=== PATIENT | female | born 1955 | race African-American/Black ===

== ENCOUNTER 2016-10-06 19:48 | Inpatient (IN) | payer MEDICARE, MEDICAID ==
[2016-10-06] MEDS ORDERED: ALBUTEROL SULFATE 0.083% NEB 2.5 MG/3 ML AMPUL NEB ONE (19:55)
[2016-10-06] MEDS ORDERED: IPRATROPIUM/ALBUTEROL 0.5-2.5 MG/3 ML AMPUL NEB ONE (19:55)
--- NOTE | 2016-10-06 19:56 | ER Document Report ---
ED Respiratory Problem - General Chief Complaint: Shortness Of Breath Stated Complaint: DIFFICULTY BREATHING Time seen by provider: 19:56 Mode of Arrival: Medic Information source: Patient, Relative TRAVEL OUTSIDE OF THE [place] IN LAST 30 DAYS: No - HPI Patient complains to provider of: Cough, Short of breath Onset: This afternoon Duration: Worse/persistent Quality of pain: No pain Context: Hx asthma, Smoker Short of Breath: Severe Chest pain/discomfort: Tightness Cough: Nonproductive Associated symptoms: Cough, Short of breath, Wheezing Similar symptoms previously: Yes Recently seen / treated by doctor: Yes Notes: Patient is a 61-year-old female presenting to the emergency room via EMS for shortness of breath this started this afternoon worsened throughout the evening , patient was brought by EMS in moderate to severe respiratory distress with hypoxia, requiring BiPAP placement, family member at bedside reports patient recently saw a primary care visit physician approximate one month ago for the first time in years, she was diagnosed with hypertension, diabetes, asthma/COPD , she is a smoker of approximately one half pack per day, patient denies any chest pain - Related Data Allergies/Adverse Reactions: No Known Allergies Allergy (Verified 05/25/13 16:46) Past Medical History - General Information source: Patient - Social History Smoking Status: Current Every Day Smoker Family History: Reviewed & Not Pertinent - Past Medical History Cardiac Medical History: Reports: Hx Hypercholesterolemia, Hx Hypertension Pulmonary Medical History: Denies: Hx Tuberculosis Endocrine Medical History: Reports: Hx Diabetes Mellitus Type 1, Hx Diabetes Mellitus Type 2 Past Surgical History: Reports: Hx Orthopedic Surgery, Hx Tubal Ligation - Immunizations Immunizations up to date: Yes Hx Diphtheria, Pertussis, Tetanus Vaccination: Yes Review of Systems - Review of Systems Constitutional: No symptoms reported EENT: No symptoms reported Cardiovascular: No symptoms reported Respiratory: See HPI Gastrointestinal: No symptoms reported Genitourinary: No symptoms reported Female Genitourinary: No symptoms reported Musculoskeletal: No symptoms reported Skin: No symptoms reported Hematologic/Lymphatic: No symptoms reported Neurological/Psychological: No symptoms reported -: Yes All other systems reviewed and negative Physical Exam - Vital signs Vitals: Resp Pulse Ox 38 H 97 10/06/16 19:50 10/06/16 19:50 Interpretation: Hypertensive, Tachycardic, Hypoxic - General General appearance: Alert In distress: Moderate - HEENT Head: Normocephalic, Atraumatic Eyes: Normal Pupils: PERRL - Respiratory Respiratory status: Respiratory distress, Labored, Tachypnea Chest status: Nontender Breath sounds: Nonproductive cough, Rales, Rhonchi, Wheezing Chest palpation: Normal - Cardiovascular Rhythm: Regular, Tachycardia Heart sounds: Normal auscultation Murmur: No - Abdominal Inspection: Normal Distension: No distension Bowel sounds: Normal Tenderness: Nontender Organomegaly: No organomegaly - Back Back: Normal, Nontender - Extremities General upper extremity: Normal inspection, Nontender, Normal color, Normal ROM , Normal temperature General lower extremity: Normal inspection, Nontender, Normal color, Normal ROM , Normal temperature, Normal weight bearing. No: Mac's sign - Neurological Neuro grossly intact: Yes Cognition: Normal Orientation: AAOx4 Kyra Coma Scale Eye Opening: Spontaneous [place] Coma Scale Verbal: Oriented [place] Coma Scale Motor: Obeys Commands Kyra Coma Scale Total: 15 Speech: Normal Motor strength normal: LUE, RUE, LLE, RLE Sensory: Normal - Psychological Associated symptoms: Normal affect, Normal mood - Skin Skin Temperature: Warm Skin Moisture: Dry Skin Color: Normal Course - Re-evaluation Re-evalutation: 10/06/16 21:40 Patient was discussed with the hospitalist, her request a CTA be performed, he will accept patient for admission to telemetry floor 10/06/16 23:17 CTA shows no evidence of pulmonary emboli, there are bilateral trace pleural effusions, patient was transferred to her telemetry bed, stable for transport at time of transfer of care - Vital Signs Vital signs: Temp Pulse Resp BP Pulse Ox 26 H 163/75 H 97 10/06/16 22:01 10/06/16 21:01 10/06/16 22:01 - Laboratory Result Diagrams: 10/06/16 20:06 10/06/16 20:06 Laboratory results interpreted by me: 10/06/16 10/06/16 10/06/16 20:06 20:06 20:06 WBC 10.7 H VBG pH VBG pCO2 Potassium 3.3 L Est GFR (Non-Af Amer) 52 L Glucose 297 H AST 132 H ALT 85 H Alkaline Phosphatase 134 H Creatine Kinase 136 H NT-Pro-B Natriuret Pep 1740 H Urine Protein Urine Glucose (UA) Urine Blood 10/06/16 10/06/16 20:06 20:35 WBC VBG pH 7.19 L* VBG pCO2 70.0 H* Potassium Est GFR (Non-Af Amer) Glucose AST ALT Alkaline Phosphatase Creatine Kinase NT-Pro-B Natriuret Pep Urine Protein >=500 H Urine Glucose (UA) >=500 H Urine Blood SMALL H - Diagnostic Test Radiology reviewed: Image reviewed, Reports reviewed - EKG Interpretation by Me EKG shows normal: Sinus rhythm Rate: Normal Rhythm: NSR Critical Care Note - Critical Care Note Total time excluding time spent on procedures (mins): 45 Comments: Patient arrived in moderate to severe respiratory distress requiring immediate BiPAP placement and admission for hypercapnic respiratory failure Discharge - Discharge Clinical Impression: COPD exacerbation Hypercapnic respiratory failure Qualifiers: Chronicity: acute Qualified Code(s): J96.02 - Acute respiratory failure with hypercapnia Condition: Serious Disposition: ADMITTED INPATIENT Admitting Provider: Hospitalist Unit Admitted: Telemetry
[2016-10-06 20:37] LABS: ABSOLUTE BASOPHILS # (AUTO) 0.1 10^3/uL (0.0-0.2); ABSOLUTE EOSINOPHILS # (AUTO) 0.2 10^3/uL (0.0-0.6); ABSOLUTE LYMPHOCYTES (AUTO) 3.8 10^3/uL (0.5-4.7); ABSOLUTE MONOCYTES (AUTO) 0.6 10^3/uL (0.1-1.4); BASOPHILS % (AUTO) 0.6 % (0-2); EOSINOPHILS % (AUTO) 2.1 % (0-6); HEMOGLOBIN 14.5 g/dL (12.0-15.5); HGB HCT DIFFERENCE 0.5; LYMPHOCYTES % (AUTO) 35.7 % (13-45); MEAN CORPUSCULAR HEMOGLOBIN 31.4 pg (27.0-33.4); MEAN CORPUSCULAR HGB CONC 33.7 g/dL (32.0-36.0); MEAN CORPUSCULAR VOLUME 93 fl (80-97); MONOCYTES % (AUTO) 5.8 % (3-13); RED BLOOD COUNT 4.61 10^6/uL (3.72-5.28); RED CELL DISTRIBUTION WIDTH 13.5 % (11.5-14.0); SEGMENTED NEUTROPHILS % (AUTO) 55.8 % (42-78); WHITE BLOOD COUNT 10.7 10^3/uL (4.0-10.5)
[2016-10-06 20:38] LABS: VENOUS BLOOD BASE EXCESS -4.2 mmol/L; VENOUS BLOOD HCO3 25.8 mmol/L (20-32)
[2016-10-06 20:47] LABS: VENOUS BLOOD PH 7.19 (7.30-7.42)
[2016-10-06 20:55] LABS: ALANINE AMINOTRANSFERASE 85 U/L (9-52); ALBUMIN 3.9 g/dL (3.5-5.0); ALKALINE PHOSPHATASE 134 U/L (38-126); ANION GAP 12 (5-19); ASPARTATE AMINO TRANSFERASE 132 U/L (14-36); BLOOD UREA NITROGEN 15 mg/dL (7-20); CALCIUM 9.3 mg/dL (8.4-10.2); CARBON DIOXIDE 24 mmol/L (22-30); CHLORIDE 105 mmol/L (98-107); CREATINE KINASE 136 U/L (30-135); CREATININE RESULT 1.07 mg/dL (0.52-1.25); GLUCOSE 297 mg/dL (75-110); POTASSIUM 3.3 mmol/L (3.6-5.0); SODIUM 141.2 mmol/L (137-145); TOTAL PROTEIN 7.2 g/dL (6.3-8.2)
[2016-10-06 21:03] LABS: APPEARANCE,URINE SLIGHTLY-CLOUDY; BILIRUBIN,URINE NEGATIVE (NEGATIVE); GLUCOSE, URINE >=500 mg/dL (NEGATIVE); KETONES,URINE NEGATIVE (NEGATIVE); LEUKOCYTE ESTERASE,URINE NEGATIVE (NEGATIVE); NITRITE,URINE NEGATIVE (NEGATIVE); PROTEIN,URINE >=500 mg/dL (NEGATIVE); URINE SPECIFIC GRAVITY 1.008; UROBILINOGEN,URINE NEGATIVE mg/dL (<2.0)
[2016-10-06 21:06] LABS: CREATINE KINASE MB 1.17 ng/mL (<4.55); TROPONIN I 0.014 ng/mL
[2016-10-06 21:14] LABS: URINE BARBITURATES SCREEN NEGATIVE; URINE METHADONE SCREEN NEGATIVE; URINE OPIATES LOW NEGATIVE; URINE PHENCYCLIDINE SCREEN NEGATIVE
[2016-10-06] MEDS ORDERED: INSULIN LISPRO 100 UNIT/ML 3 ML VIAL SUBCUT PRN (21:46)
[2016-10-06] MEDS ORDERED: DEXTROSE 40% GEL 15 GM TUBE PO PRN ×2 (21:46)
[2016-10-06] MEDS ORDERED: DEXTROSE 50%-WATER 25 GM/50 ML DISP.SYRIN IV PRN ×2 (21:46)
[2016-10-06] MEDS ORDERED: GUAIFENESIN SYRP 200 MG/10 ML UDC PO PRN (21:46)
[2016-10-06] MEDS ORDERED: ACETAMINOPHEN 325 MG TABLET PO PRN (21:46)
[2016-10-06] MEDS ORDERED: GLUCAGON,HUMAN RECOMB 1 MG INJ IM PRN (21:46)
[2016-10-06] MEDS: POTASSI CL 20 MEQ/50 ML RIDER 50 ML IV SCH ×2 (21:51→23:39)
[2016-10-06] MEDS ORDERED: LEVOFLOXACIN 750 MG/D5W RTU 750 MG/150 ML RTUPB IV SCH (22:00)
[2016-10-06] MEDS ORDERED: AMLODIPINE BESYLATE 10 MG TABLET PO ONE (23:00)
[2016-10-06] MEDS ORDERED: LEVOFLOXACIN 750 MG/D5W RTU 750 MG/150 ML RTUPB IV ONE (23:00)
[2016-10-07] MEDS ORDERED: FUROSEMIDE INJ/PF 20 MG/2 ML SDV IV ONE
[2016-10-07] MEDS: ATORVASTATIN CALCIUM 20 MG TABLET PO SCH ×2 (00:22→21:22)
[2016-10-07] MEDS: GUAIFENESIN 600 MG TABLET.SA PO SCH ×3 (00:23→21:22)
[2016-10-07] MEDS: HEPARIN SOD (PORCINE) 5,000 UNIT/ML 1 ML SYRINGE SUBCUT SCH ×4 (00:24→21:22)
[2016-10-07] MEDS: FLUTICASONE NASAL SPRAY 50 MCG/SPRY 120 SPRAY/16 GM NASL SCH ×3 (00:32→21:23)
--- NOTE | 2016-10-07 05:40 | EKG REPORT ---
SEVERITY:- ABNORMAL ECG - SINUS RHYTHM ATRIAL PREMATURE COMPLEX NONSPECIFIC T ABNORMALITIES, LATERAL LEADS : Confirmed by: Haydee Rawls MD 07-Oct-2016 05:39:56
--- NOTE | 2016-10-07 05:42 | PDOC H&P ---
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 Patient been her usual state of health until approximately 4 days ago noting worsening shortness of breath from baseline prompting him to seek evaluation by primary care initiating antibiotic for bronchitis without significant improvement propping to seek evaluation emergeny room. EMS finds her in respiratory distress placing a nonrebreather for oxygen saturations in the mid 70s. Patient denies chest pain nausea vomiting diaphoresis, admits feeling better after IV Lasix and BiPAP. She complains of a dry mouth admitting consuming large quantity of fluids and is unaware of any dietary restrictions and continues to drink alcohol and smoke daily. Past Medical History Cardiac Medical History: Reports: Congestive Heart Failure, Hyperlipidema, Hypertension Pulmonary Medical History: Reports: Bronchitis, Chronic Obstructive Pulmonary Disease (COPD) Denies: Tuberculosis Endocrine Medical History: Reports: Diabetes Mellitus Type 1 Psychiatric Medical History: Reports: Tobacco Dependency Past Surgical History Past Surgical History: Reports: Orthopedic Surgery, Tubal Ligation Social History Information Source: Patient, Relative Lives with: Family Smoking Status: Current Every Day Smoker Frequency of Alcohol Use: Occasional Hx Recreational Drug Use: No Drugs: None Hx Prescription Drug Abuse: No - Advance Directive Resuscitation Status: Full Code Family History Family History: CAD, COPD, Hypertension Parental Family History Reviewed: Yes Children Family History Reviewed: Yes Sibling(s) Family History Reviewed.: Yes Medication/Allergy Home Medications: Amlodipine Besylate [Norvasc 10 mg Tablet] 10 mg PO DAILY 08/06/12 Glimepiride [Amaryl 4 Mg Tablet] 4 mg PO BID 08/06/12 Simvastatin [Zocor 10 mg Tablet] 10 mg PO QHS 08/06/12 Methocarbamol [Robaxin 500 Mg Tablet] 500 mg PO QID PRN #60 tablet 01/28/13 Tramadol HCl [Ultram 50 mg Tablet] 50 mg PO ASDIR PRN #20 tablet 01/28/13 Amlodipine Bes/Olmesartan Med [Colleen 10-40 mg Tablet] 1 tab PO DAILY 03/26/13 Atorvastatin Calcium 20 mg PO DAILY 03/26/13 Metformin HCl [Glucophage 1000 mg Tablet] 1,000 mg PO BID 03/26/13 Sitagliptin Phosphate [Januvia] 100 mg PO DAILY 03/26/13 Amoxicillin/Potassium Clav [Augmentin 875-125 Tablet] 1 tab PO BID 04/04/13 Docusate Sodium [Colace 100 mg Capsule] 100 mg PO BID 04/04/13 Metronidazole [Flagyl 500 mg Tablet] 500 mg PO TID 04/04/13 Oxycodone HCl/Acetaminophen [Percocet 5-325 mg Tablet] 1 tab PO Q4HP PRN Cephalexin Monohydrate [Keflex 500 mg Capsule] 500 mg PO QID #30 capsule Glimepiride [Amaryl 4 mg Tablet] 4 mg PO BID #60 tablet 05/25/13 Metformin HCl [Glucophage 1000 mg Tablet] 1,000 mg PO BID #60 tablet 05/25/13 Oxycodone HCl/Acetaminophen [Percocet 5-325 mg Tablet] 1 - 2 tab PO Q4H PRN #15 tablet 11/22/14 Hydrocodone/Acetaminophen [H[place]eland 5-325 Tablet] 1 each PO Q6HP PRN #25 tablet Celecoxib [Celebrex] 50 mg PO BID #20 capsule 03/25/16 Levofloxacin [Levaquin 500 mg Tablet] 500 mg PO DAILY #7 tablet 05/11/16 Allergies/Adverse Reactions: No Known Allergies Allergy (Verified 05/25/13 16:46) Review of Systems Constitutional: PRESENT: fatigue, weakness, weight gain. ABSENT: fever(s), headache(s) Eyes: ABSENT: visual disturbances Ears: ABSENT: hearing changes Cardiovascular: PRESENT: dyspnea on exertion, edema, orthropnea Respiratory: PRESENT: cough, dyspnea, sputum - Clear and frothy. ABSENT: hemoptysis Gastrointestinal: ABSENT: abdominal pain, constipation, diarrhea, hematemesis, hematochezia, nausea, vomiting Genitourinary: ABSENT: dysuria, hematuria Musculoskeletal: ABSENT: joint swelling Integumentary: ABSENT: rash, wounds Neurological: ABSENT: abnormal gait, abnormal speech, confusion, dizziness, focal weakness, syncope Psychiatric: ABSENT: anxiety, depression, homidical ideation, suicidal ideation Endocrine: ABSENT: cold intolerance, heat intolerance, polydipsia, polyuria Hematologic/Lymphatic: ABSENT: easy bleeding, easy bruising Physical Exam Vital Signs: Temp Pulse Resp BP Pulse Ox 98.5 F 70 22 H 145/61 H 100 10/07/16 04:46 10/07/16 04:46 10/07/16 04:46 10/07/16 04:46 10/07/16 04:46 Intake & Output 10/05/16 10/06/16 10/07/16 11:59 11:59 11:59 Intake Total 240 Balance 240 Weight 82.2 kg General appearance: PRESENT: cooperative, disheveled, severe distress, well- developed, well-nourished Head exam: PRESENT: atraumatic, normocephalic Eye exam: PRESENT: conjunctiva pink, EOMI, PERRLA. ABSENT: scleral icterus Ear exam: PRESENT: normal external ear exam Mouth exam: PRESENT: moist, tongue midline Neck exam: PRESENT: JVD. ABSENT: carotid bruit, lymphadenopathy, thyromegaly Respiratory exam: PRESENT: accessory muscle use, crackles, decreased breath sounds, prolonged expiratory phas, retraction, symmetrical, tachypnea. ABSENT: rales, rhonchi, stridor, wheezes Cardiovascular exam: PRESENT: gallop, RRR, +S1, +S2, systolic murmur, tachycardia. ABSENT: diastolic murmur, rubs Pulses: PRESENT: normal dorsalis pedis pul Vascular exam: PRESENT: normal capillary refill GI/Abdominal exam: PRESENT: normal bowel sounds, soft. ABSENT: distended, guarding, mass, organolmegaly, rebound, tenderness Rectal exam: PRESENT: deferred Extremities exam: PRESENT: full ROM, +1 edema. ABSENT: calf tenderness, clubbing, pedal edema Neurological exam: PRESENT: alert, awake, oriented to person, oriented to place , oriented to time, oriented to situation, CN II-XII grossly intact. ABSENT: motor sensory deficit Psychiatric exam: PRESENT: anxious. ABSENT: homicidal ideation, suicidal ideation Skin exam: PRESENT: dry, intact, warm. ABSENT: cyanosis, rash Results Impressions: Chest X-Ray 10/06/16 19:55 IMPRESSION: BORDERLINE CARDIOMEGALY WITH MILD VASCULAR CONGESTION. Chest/Abdomen CTA 10/06/16 21:40 IMPRESSION: 1. NORMAL CTA OF THE CHEST. NO PULMONARY EMBOLI. 2. MILD CARDIOMEGALY WITH SMALL PLEURAL EFFUSIONS. PROBABLE EARLY PULMONARY EDEMA. Assessment & Plan - Diagnosis (1) COPD exacerbation Is this a current diagnosis for this admission?: YesPlan: Tobacco avoidance, BiPAP, albuterol Atrovent, Claritin and Flonase (2) Congestive heart failure Qualifiers: Congestive heart failure type: unspecified congestive heart failure type Is this a current diagnosis for this admission?: YesPlan: Ejection fraction unknown evaluate with echo initiate fluid restriction, ASHISH inhibitor, hydralazine, Lasix and continue BiPAP obtain education (3) Diabetes 1.5, managed as type 1 Is this a current diagnosis for this admission?: YesPlan: Continue outpatient regiment with sliding scale obtain education (4) Noncompliance Is this a current diagnosis for this admission?: YesPlan: Obtain diabetic and CHF education (5) Tobacco abuse Is this a current diagnosis for this admission?: YesPlan: Tobacco Dependence patient received tobacco cessation counseling and offered nicotine replacement options (6) Abnormal LFTs Is this a current diagnosis for this admission?: YesPlan: Likely hepatic congestion secondary to CHF versus alcohol will reevaluate LFTs in a.m. avoid hepatotoxic meds and doses - Time Time Spent: 50 to 70 Minutes
[2016-10-07 06:37] LABS: ABSOLUTE EOSINOPHILS # (AUTO) 0.1 10^3/uL (0.0-0.6); ABSOLUTE MONOCYTES (AUTO) 0.9 10^3/uL (0.1-1.4); ABSOLUTE NEUT (AUTO) 6.3 10^3/uL (1.7-8.2); BASOPHILS % (AUTO) 0.4 % (0-2); EOSINOPHILS % (AUTO) 1.2 % (0-6); HEMATOCRIT 39.7 % (36.0-47.0); HEMOGLOBIN 13.5 g/dL (12.0-15.5); HGB HCT DIFFERENCE 0.8; LYMPHOCYTES % (AUTO) 21.6 % (13-45); MEAN CORPUSCULAR HEMOGLOBIN 31.3 pg (27.0-33.4); MEAN CORPUSCULAR HGB CONC 34.1 g/dL (32.0-36.0); MEAN CORPUSCULAR VOLUME 92 fl (80-97); MONOCYTES % (AUTO) 9.2 % (3-13); RED BLOOD COUNT 4.32 10^6/uL (3.72-5.28); RED CELL DISTRIBUTION WIDTH 13.5 % (11.5-14.0); SEGMENTED NEUTROPHILS % (AUTO) 67.6 % (42-78); WHITE BLOOD COUNT 9.3 10^3/uL (4.0-10.5)
[2016-10-07 06:51] LABS: ALANINE AMINOTRANSFERASE 65 U/L (9-52); ALBUMIN 3.5 g/dL (3.5-5.0); ALKALINE PHOSPHATASE 91 U/L (38-126); ANION GAP 12 (5-19); ASPARTATE AMINO TRANSFERASE 56 U/L (14-36); BILIRUBIN,TOTAL 0.9 mg/dL (0.2-1.3); BLOOD UREA NITROGEN 15 mg/dL (7-20); CALCIUM 9.3 mg/dL (8.4-10.2); CARBON DIOXIDE 24 mmol/L (22-30); CHLORIDE 106 mmol/L (98-107); CREATININE RESULT 0.83 mg/dL (0.52-1.25); GLUCOSE 133 mg/dL (75-110); POTASSIUM 3.7 mmol/L (3.6-5.0); SODIUM 141.8 mmol/L (137-145); TOTAL PROTEIN 6.6 g/dL (6.3-8.2)
[2016-10-07] MEDS: DOCUSATE SODIUM 100 MG CAPSULE PO SCH ×2 (10:00→17:53)
[2016-10-07] MEDS ORDERED: AMLODIPINE BESYLATE 10 MG TABLET PO SCH (10:00)
[2016-10-07] MEDS: FUROSEMIDE INJ/PF 40 MG/4 ML SDV IV SCH ×2 (12:05→21:22)
[2016-10-07] MEDS: TIOTROPIUM BROMIDE DPI 5 CAP/KIT (18 MCG/CAP) IH SCH (12:05)
[2016-10-07] MEDS: METFORMIN HCL 500 MG TABLET PO SCH ×2 (12:06→17:49)
[2016-10-07] MEDS: LORATADINE 10 MG TABLET PO SCH (12:07)
[2016-10-07] MEDS: GLIMEPIRIDE 4 MG TABLET PO SCH ×2 (12:08→17:51)
[2016-10-07] MEDS: ENALAPRIL MALEATE 5 MG TABLET PO SCH (12:09)
--- NOTE | 2016-10-07 13:02 | XCELERA REPORT ---
[address] [address] Transthoracic Echocardiogram Report Name: KAVITA PAINTER Age: 61 yrs Gender: Female : 1955 Patient Status: Inpatient Patient Location: [id number]\401\[id number]\A Study Date: 10/07/2016 09:13 AM Height: 65 in Weight: 181 lb BSA: 1.9 m2 Procedure: A complete two-dimensional transthoracic echocardiogram was performed (2D, M-mode, spectral and color flow Doppler). The study was technically adequate with some images being suboptimal in quality. Reason For Study: systolic murmur Ordering Physician: JEWELS ORTEZ Performed By: Tereza Lane Interpretation Summary Left ventricular systolic function is borderline reduced. The Ejection Fraction estimate is 50-55% There is mild concentric left ventricular hypertrophy. The left ventricle is grossly normal size. Doppler measurements suggest pseudonormalized left ventricular relaxation, which is associated with grade II/IV or mild to moderate diastolic dysfunction Wall motion cannot be accurately commented on, but no definite regional wall motion abnormalities noted. The right ventricular systolic function is normal. The right atrium is normal. The left atrium is borderline dilated. There is no mitral valve stenosis. There is a trace amount of mitral regurgitation No aortic regurgitation is present. There is no aortic valve stenosis Right ventricular systolic pressure is at the upper limits of normal There is a trace to mild amount of tricuspid regurgitation The aortic root is not well visualized. The inferior vena cava appeared normal and decreased > 50% with respiration (RAP 5-10 mmHg) There is no pericardial effusion. MMode/2D Measurements \T\ Calculations RVDd: 2.3 cm LVIDd: 5.2 cm FS: 26.9 % Ao root diam: 2.3 cm IVSd: 0.96 cm LVIDs: 3.8 cm EDV(Teich): 127.6 ml LVPWd: 1.0 cm ESV(Teich): 61.1 ml Ao root area: 4.2 cm2 EF(Teich): 52.1 % LA dimension: 3.6 cm Doppler Measurements \T\ Calculations MV E max austin: MV P1/2t max austin: Ao V2 max: LV V1 max P.6 cm/sec 81.0 cm/sec 126.2 cm/sec 2.7 mmHg MV A max austin: MV P1/2t: 58.0 msec Ao max PG: LV V1 max: 83.3 cm/sec 6.4 mmHg 82.5 cm/sec MV E/A: 0.97 MVA(P1/2t): 3.8 cm2 MV dec slope: 408.7 cm/sec2 PA V2 max: PI end-d austin: TR max austin: 57.8 cm/sec 137.1 cm/sec 260.6 cm/sec PA max PG: TR max P.3 mmHg 27.2 mmHg Left Ventricle The left ventricle is grossly normal size. There is mild concentric left ventricular hypertrophy. Left ventricular systolic function is borderline reduced. The Ejection Fraction estimate is 50-55%. Doppler measurements suggest pseudonormalized left ventricular relaxation, which is associated with grade II/IV or mild to moderate diastolic dysfunction. Wall motion cannot be accurately commented on, but no definite regional wall motion abnormalities noted. Right Ventricle The right ventricle is grossly normal size. There is normal right ventricular wall thickness. The right ventricular systolic function is normal. Atria The right atrium is normal. The left atrium is borderline dilated. Interarterial septum not well visualized and not well dopplered. Cannot comment on ASD/PFO presence. Mitral Valve The mitral valve leaflets are sclerotic, but show no functional abnormalities. There is no mitral valve stenosis. There is a trace amount of mitral regurgitation. Aortic Valve The aortic valve opens well. The aortic valve is not well visualized secondary to technical limitations. There is no aortic valve stenosis. No aortic regurgitation is present. Tricuspid Valve The tricuspid valve is not well visualized, but is grossly normal. There is no tricuspid stenosis. There is a trace to mild amount of tricuspid regurgitation. Right ventricular systolic pressure is at the upper limits of normal. Pulmonic Valve The pulmonic valve is not well visualized. Great Vessels The aortic root is not well visualized. The inferior vena cava appeared normal and decreased > 50% with respiration (RAP 5-10 mmHg). Effusions There is no pericardial effusion. : JEWELS ORTEZ > Martha Canela
--- NOTE | 2016-10-07 16:32 | PDOC PROGRESS REPORT ---
Subjective Progress Note for:: 10/07/16 Subjective:: Patient seen on morning rounds. She is resting comfortably in bed presently on nasal cannula at 2 L/m. She no longer requires BiPAP. She states her breathing is much improved from admission. She denies any knowledge of having any heart failure. She states she does have high blood pressure. She states she does take her medications. She denies any knowledge of having COPD either. She states she has continued to smoke. She denies any nausea, vomiting, abdominal pain. She denies any back pain, arthralgia or myalgia. Physical Exam Vital Signs: Temp Pulse Resp BP Pulse Ox 98.9 F 76 20 134/88 H 99 10/07/16 07:38 10/07/16 07:38 10/07/16 07:38 10/07/16 07:38 10/07/16 07:38 Intake & Output 10/06/16 10/07/16 10/08/16 06:59 06:59 06:59 Intake Total 240 Balance 240 Weight 82.2 kg General appearance: PRESENT: no acute distress, well-developed, well-nourished Head exam: PRESENT: atraumatic, normocephalic Eye exam: PRESENT: conjunctiva pink, EOMI, PERRLA. ABSENT: scleral icterus Ear exam: PRESENT: normal external ear exam Mouth exam: PRESENT: moist, tongue midline Neck exam: ABSENT: carotid bruit, JVD, lymphadenopathy, thyromegaly Respiratory exam: PRESENT: clear to auscultation lorenza. ABSENT: rales, rhonchi, wheezes Cardiovascular exam: PRESENT: RRR. ABSENT: diastolic murmur, rubs, systolic murmur Pulses: PRESENT: normal carotid pulses, normal radial pulses Vascular exam: PRESENT: normal capillary refill GI/Abdominal exam: PRESENT: normal bowel sounds, soft. ABSENT: distended, guarding, mass, organolmegaly, rebound, tenderness Rectal exam: PRESENT: deferred Extremities exam: PRESENT: full ROM. ABSENT: calf tenderness, clubbing, pedal edema Neurological exam: PRESENT: alert, awake, oriented to person, oriented to place , oriented to time, oriented to situation, CN II-XII grossly intact. ABSENT: motor sensory deficit Psychiatric exam: PRESENT: appropriate affect, normal mood. ABSENT: homicidal ideation, suicidal ideation Skin exam: PRESENT: dry, intact, warm. ABSENT: cyanosis, rash Results Laboratory Results: 10/07/16 05:24 10/07/16 05:24 10/07/16 10/07/16 05:24 05:24 WBC 9.3 RBC 4.32 Hgb 13.5 Hct 39.7 MCV 92 MCH 31.3 MCHC 34.1 RDW 13.5 Plt Count 198 Seg Neutrophils % 67.6 Lymphocytes % 21.6 Monocytes % 9.2 Eosinophils % 1.2 Basophils % 0.4 Absolute Neutrophils 6.3 Absolute Lymphocytes 2.0 Absolute Monocytes 0.9 Absolute Eosinophils 0.1 Absolute Basophils 0.0 Sodium 141.8 Potassium 3.7 Chloride 106 Carbon Dioxide 24 Anion Gap 12 BUN 15 Creatinine 0.83 Est GFR ( Amer) > 60 Est GFR (Non-Af Amer) > 60 Glucose 133 H Calcium 9.3 Total Bilirubin 0.9 AST 56 H ALT 65 H Alkaline Phosphatase 91 Total Protein 6.6 Albumin 3.5 Impressions: Chest X-Ray 10/06/16 19:55 IMPRESSION: BORDERLINE CARDIOMEGALY WITH MILD VASCULAR CONGESTION. Chest/Abdomen CTA 10/06/16 21:40 IMPRESSION: 1. NORMAL CTA OF THE CHEST. NO PULMONARY EMBOLI. 2. MILD CARDIOMEGALY WITH SMALL PLEURAL EFFUSIONS. PROBABLE EARLY PULMONARY EDEMA. Assessment & Plan - Diagnosis (1) COPD exacerbation Is this a current diagnosis for this admission?: YesPlan: Continue current antibiotics, steroids and nebulizer treatment. (2) Congestive heart failure Qualifiers: Congestive heart failure type: diastolic Congestive heart failure chronicity: chronic Qualified Code(s): I50.32 - Chronic diastolic ( congestive) heart failure Is this a current diagnosis for this admission?: YesPlan: Transthoracic echo was done which showed an EF of 50-55% with mild grade 2 diastolic dysfunction. Patient was counseled on her need to keep her blood pressure under control. She is also counseled on stopping smoking and drinking alcohol daily. Patient education spent a great deal of time counseling her on an weighing herself daily, avoiding salt in her diet, exercise and take her medications prescribed (3) Diabetes 1.5, managed as type 1 Is this a current diagnosis for this admission?: Yes (4) Hypercapnic respiratory failure Qualifiers: Chronicity: acute Qualified Code(s): J96.02 - Acute respiratory failure with hypercapnia Is this a current diagnosis for this admission?: YesPlan: Patient much improved off BiPAP oxygenating well on 2 L/m nasal cannula. (5) Tobacco abuse Is this a current diagnosis for this admission?: YesPlan: She is been counseled she does not intend to quit smoking now however. (6) Abnormal LFTs Is this a current diagnosis for this admission?: YesPlan: Probably secondary to daily alcohol use, and fatty liver. They did improve overnight (7) Noncompliance Is this a current diagnosis for this admission?: YesPlan: She was counseled importance of taking her medications (8) Diabetes 1.5, managed as type 2 Is this a current diagnosis for this admission?: YesPlan: Continue current medications and sliding scale coverage. - Time Time Spent with patient: 25-34 minutes Critical Time spent with patient: 15-24 minutes Medications reviewed and adjusted accordingly: Yes
[2016-10-08] MEDS: HEPARIN SOD (PORCINE) 5,000 UNIT/ML 1 ML SYRINGE SUBCUT SCH ×3 (05:09→21:46)
[2016-10-08 05:36] LABS: ABSOLUTE BASOPHILS # (AUTO) 0.1 10^3/uL (0.0-0.2); ABSOLUTE EOSINOPHILS # (AUTO) 0.2 10^3/uL (0.0-0.6); ABSOLUTE MONOCYTES (AUTO) 0.8 10^3/uL (0.1-1.4); ABSOLUTE NEUT (AUTO) 6.4 10^3/uL (1.7-8.2); BASOPHILS % (AUTO) 0.6 % (0-2); EOSINOPHILS % (AUTO) 2.2 % (0-6); HEMATOCRIT 42.2 % (36.0-47.0); HEMOGLOBIN 14.3 g/dL (12.0-15.5); HGB HCT DIFFERENCE 0.7; LYMPHOCYTES % (AUTO) 21.1 % (13-45); MEAN CORPUSCULAR HEMOGLOBIN 30.9 pg (27.0-33.4); MEAN CORPUSCULAR HGB CONC 33.8 g/dL (32.0-36.0); MEAN CORPUSCULAR VOLUME 91 fl (80-97); MONOCYTES % (AUTO) 8.3 % (3-13); RED BLOOD COUNT 4.63 10^6/uL (3.72-5.28); RED CELL DISTRIBUTION WIDTH 13.4 % (11.5-14.0); SEGMENTED NEUTROPHILS % (AUTO) 67.8 % (42-78); WHITE BLOOD COUNT 9.4 10^3/uL (4.0-10.5)
[2016-10-08 05:56] LABS: ALANINE AMINOTRANSFERASE 52 U/L (9-52); ALBUMIN 3.7 g/dL (3.5-5.0); ALKALINE PHOSPHATASE 83 U/L (38-126); ANION GAP 14 (5-19); ASPARTATE AMINO TRANSFERASE 24 U/L (14-36); BILIRUBIN,TOTAL 1.1 mg/dL (0.2-1.3); BLOOD UREA NITROGEN 23 mg/dL (7-20); CALCIUM 10.2 mg/dL (8.4-10.2); CARBON DIOXIDE 29 mmol/L (22-30); CHLORIDE 102 mmol/L (98-107); CREATININE RESULT 1.14 mg/dL (0.52-1.25); GLUCOSE 135 mg/dL (75-110); POTASSIUM 3.7 mmol/L (3.6-5.0); SODIUM 144.9 mmol/L (137-145); TOTAL PROTEIN 6.7 g/dL (6.3-8.2)
[2016-10-08] MEDS: FUROSEMIDE INJ/PF 40 MG/4 ML SDV IV SCH ×2 (09:37→21:46)
[2016-10-08] MEDS: METFORMIN HCL 500 MG TABLET PO SCH ×2 (09:38→17:44)
[2016-10-08] MEDS: ENALAPRIL MALEATE 5 MG TABLET PO SCH (09:38)
[2016-10-08] MEDS: FLUTICASONE NASAL SPRAY 50 MCG/SPRY 120 SPRAY/16 GM NASL SCH ×2 (09:40→21:46)
[2016-10-08] MEDS: GUAIFENESIN 600 MG TABLET.SA PO SCH ×2 (09:41→21:45)
[2016-10-08] MEDS: GLIMEPIRIDE 4 MG TABLET PO SCH ×2 (09:41→17:45)
[2016-10-08] MEDS: LORATADINE 10 MG TABLET PO SCH (09:41)
[2016-10-08] MEDS: TIOTROPIUM BROMIDE DPI 5 CAP/KIT (18 MCG/CAP) IH SCH (09:41)
[2016-10-08] MEDS: DOCUSATE SODIUM 100 MG CAPSULE PO SCH ×2 (09:42→17:45)
[2016-10-08] MEDS ORDERED: GUAIFENESIN 600 MG TABLET.SA PO ONE (11:00)
[2016-10-08] MEDS: LEVOFLOXACIN 750 MG TABLET PO SCH (13:35)
[2016-10-08] MEDS: METOPROLOL TARTRATE 50 MG TABLET PO SCH ×2 (13:36→21:45)
[2016-10-08] MEDS: SITAGLIPTIN PHOSPHATE 50 MG TABLET PO SCH (13:38)
--- NOTE | 2016-10-08 16:51 | PDOC PROGRESS REPORT ---
Subjective Progress Note for:: 10/08/16 Subjective:: Patient seen on morning rounds. She is resting comfortably in bed presently on nasal cannula at 2 L/m. She no longer requires BiPAP. She states her breathing is much improved from admission. She denies any knowledge of having any heart failure. She states she does have high blood pressure. She states she does take her medications. She denies any knowledge of having COPD either. She states she has continued to smoke. She denies any nausea, vomiting, abdominal pain. She denies any back pain, arthralgia or myalgia. Physical Exam Vital Signs: Temp Pulse Resp BP Pulse Ox 98.4 F 93 18 146/97 H 98 10/08/16 11:44 10/08/16 11:44 10/08/16 11:44 10/08/16 11:44 10/08/16 11:44 Intake & Output 10/07/16 10/08/16 10/09/16 06:59 06:59 06:59 Intake Total 240 850 980 Balance 240 850 980 Weight 82.2 kg 83.2 kg General appearance: PRESENT: no acute distress, well-developed, well-nourished Head exam: PRESENT: atraumatic, normocephalic Eye exam: PRESENT: conjunctiva pink, EOMI, PERRLA. ABSENT: scleral icterus Ear exam: PRESENT: normal external ear exam. ABSENT: bleeding, drainage, TM's normal bilaterally, other Neck exam: ABSENT: carotid bruit, JVD, lymphadenopathy, thyromegaly Respiratory exam: PRESENT: decreased breath sounds, rhonchi, symmetrical Cardiovascular exam: PRESENT: RRR. ABSENT: diastolic murmur, rubs, systolic murmur Pulses: PRESENT: normal dorsalis pedis pul GI/Abdominal exam: PRESENT: normal bowel sounds, soft. ABSENT: distended, guarding, mass, organolmegaly, rebound, tenderness Rectal exam: PRESENT: deferred Extremities exam: PRESENT: full ROM. ABSENT: calf tenderness, clubbing, pedal edema Neurological exam: PRESENT: alert, awake, oriented to person, oriented to place , oriented to time, oriented to situation, CN II-XII grossly intact. ABSENT: motor sensory deficit Psychiatric exam: PRESENT: appropriate affect, normal mood. ABSENT: homicidal ideation, suicidal ideation Skin exam: PRESENT: dry, intact, warm. ABSENT: cyanosis, rash Results Laboratory Results: 10/08/16 04:51 10/08/16 04:51 10/08/16 10/08/16 04:51 04:51 WBC 9.4 RBC 4.63 Hgb 14.3 Hct 42.2 MCV 91 MCH 30.9 MCHC 33.8 RDW 13.4 Plt Count 215 Seg Neutrophils % 67.8 Lymphocytes % 21.1 Monocytes % 8.3 Eosinophils % 2.2 Basophils % 0.6 Absolute Neutrophils 6.4 Absolute Lymphocytes 2.0 Absolute Monocytes 0.8 Absolute Eosinophils 0.2 Absolute Basophils 0.1 Sodium 144.9 Potassium 3.7 Chloride 102 Carbon Dioxide 29 Anion Gap 14 BUN 23 H Creatinine 1.14 Est GFR ( Amer) 59 L Est GFR (Non-Af Amer) 49 L Glucose 135 H Calcium 10.2 Total Bilirubin 1.1 AST 24 ALT 52 Alkaline Phosphatase 83 Total Protein 6.7 Albumin 3.7 Impressions: Chest X-Ray 10/06/16 19:55 IMPRESSION: BORDERLINE CARDIOMEGALY WITH MILD VASCULAR CONGESTION. Chest/Abdomen CTA 10/06/16 21:40 IMPRESSION: 1. NORMAL CTA OF THE CHEST. NO PULMONARY EMBOLI. 2. MILD CARDIOMEGALY WITH SMALL PLEURAL EFFUSIONS. PROBABLE EARLY PULMONARY EDEMA. Assessment & Plan - Diagnosis (1) COPD exacerbation Is this a current diagnosis for this admission?: YesPlan: Continue current antibiotics, steroids and nebulizer treatment. (2) Congestive heart failure Qualifiers: Congestive heart failure type: diastolic Congestive heart failure chronicity: chronic Qualified Code(s): I50.32 - Chronic diastolic ( congestive) heart failure Is this a current diagnosis for this admission?: YesPlan: Transthoracic echo was done which showed an EF of 50-55% with mild grade 2 diastolic dysfunction. Patient was counseled on her need to keep her blood pressure under control. She is also counseled on stopping smoking and drinking alcohol daily. Patient education spent a great deal of time counseling her on an weighing herself daily, avoiding salt in her diet, exercise and take her medications prescribed (3) Diabetes 1.5, managed as type 1 Is this a current diagnosis for this admission?: YesPlan: Continue current medication (4) Hypercapnic respiratory failure Qualifiers: Chronicity: acute Qualified Code(s): J96.02 - Acute respiratory failure with hypercapnia Is this a current diagnosis for this admission?: YesPlan: Patient much improved off BiPAP oxygenating well on 2 L/m nasal cannula. (5) Tobacco abuse Is this a current diagnosis for this admission?: YesPlan: She is been counseled she does not intend to quit smoking now however. (6) Abnormal LFTs Is this a current diagnosis for this admission?: YesPlan: Probably secondary to daily alcohol use, and fatty liver. They did improve overnight (7) Noncompliance Is this a current diagnosis for this admission?: YesPlan: She was counseled importance of taking her medications (8) Diabetes 1.5, managed as type 2 Is this a current diagnosis for this admission?: YesPlan: Continue current medications and sliding scale coverage. - Time Time Spent with patient: 25-34 minutes Critical Time spent with patient: 15-24 minutes Medications reviewed and adjusted accordingly: Yes Anticipated discharge: Home Within: within 24 hours
[2016-10-08] MEDS: ATORVASTATIN CALCIUM 20 MG TABLET PO SCH (21:45)
[2016-10-09] MEDS: HEPARIN SOD (PORCINE) 5,000 UNIT/ML 1 ML SYRINGE SUBCUT SCH (05:36)
[2016-10-09 08:56] VITALS: BP 128/64
[2016-10-09] MEDS: SITAGLIPTIN PHOSPHATE 50 MG TABLET PO SCH (09:42)
[2016-10-09] MEDS: METFORMIN HCL 500 MG TABLET PO SCH (09:43)
[2016-10-09] MEDS: GUAIFENESIN 600 MG TABLET.SA PO SCH (09:43)
[2016-10-09] MEDS: ENALAPRIL MALEATE 5 MG TABLET PO SCH (09:43)
[2016-10-09] MEDS: LORATADINE 10 MG TABLET PO SCH (09:43)
[2016-10-09] MEDS: DOCUSATE SODIUM 100 MG CAPSULE PO SCH (09:43)
[2016-10-09] MEDS: METOPROLOL TARTRATE 50 MG TABLET PO SCH (09:44)
[2016-10-09] MEDS: LEVOFLOXACIN 750 MG TABLET PO SCH (09:44)
[2016-10-09] MEDS: GLIMEPIRIDE 4 MG TABLET PO SCH (09:44)
[2016-10-09] MEDS: FLUTICASONE NASAL SPRAY 50 MCG/SPRY 120 SPRAY/16 GM NASL SCH (09:45)
[2016-10-09] MEDS: TIOTROPIUM BROMIDE DPI 5 CAP/KIT (18 MCG/CAP) IH SCH (09:45)
[2016-10-09] MEDS: FUROSEMIDE INJ/PF 40 MG/4 ML SDV IV SCH (09:46)
--- NOTE | 2016-10-09 12:45 | PDOC DISCHARGE SUMMARY ---
General - Admit/Disc Date/PCP Admission Date/Primary Care Provider: 10/06/16 21:47 JEWELS BENITEZ MD Discharge Date: 10/09/16 - Discharge Diagnosis (1) COPD exacerbation Is this a current diagnosis for this admission?: YesSummary: Continue inhalers, tobacco cessation, antibiotics as directed. Continue mucinex otc as directed (2) Congestive heart failure Is this a current diagnosis for this admission?: YesSummary: Patient instructed to weigh herself daily and record. Notify healthcare provider if her weight increases by more than 3 pounds in 24 hours or 5 lbs in one week, low sodium diet. (3) Diabetes 1.5, managed as type 1 Is this a current diagnosis for this admission?: YesSummary: Continue current medications (4) Hypercapnic respiratory failure Is this a current diagnosis for this admission?: YesSummary: Resolved. Patient counseled on the need to quit smoking. She is instructed on need be compliant with inhalers as well. (5) Tobacco abuse Is this a current diagnosis for this admission?: YesSummary: Patient was counseled several times. She states she does want to quit smoking. (6) Abnormal LFTs Is this a current diagnosis for this admission?: YesSummary: Improved with diuresis probable hepatic fatty liver patient was instructed to avoid alcohol (7) Noncompliance Is this a current diagnosis for this admission?: YesSummary: Patient was counseled - Additional Information Resuscitation Status: Full Code Discharge Diet: Cardiac, Diabetic Discharge Activity: Activity As Tolerated, Balance Activity w/Rest Home Medications: Albuterol Sulfate [Ventolin HFA MDI 18 GM] 2 puff IH Q4HP PRN 10/07/16 Atorvastatin Calcium [Lipitor 20 mg Tablet] 20 mg PO DAILY 10/07/16 Benazepril HCl [Lotensin 20 mg Tablet] 20 mg PO DAILY 10/07/16 Furosemide [Lasix] 20 mg PO DAILY 10/07/16 Glimepiride [Amaryl 4 mg Tablet] 8 mg PO DAILY 10/07/16 Insulin Detemir [Levemir Flextouch] 10 units SQ QHS 10/07/16 Metformin HCl [Glucophage] 1,000 mg PO BIDBS 10/07/16 Metoprolol Tartrate [Lopressor] 50 mg PO Q12 10/07/16 Sitagliptin Phosphate [Januvia] 100 mg PO DAILY 10/07/16 Acetaminophen [Tylenol 325 mg Tablet] 650 mg PO Q4HP PRN tablet 10/09/16 Levofloxacin [Levaquin 750 mg Tablet] 750 mg PO DAILY #5 tablet 10/09/16 Loratadine [Claritin 10 mg Tablet] 10 mg PO DAILY tablet 10/09/16 Tiotropium Maribel [Spiriva Handihaler 5 Cap/Kit (18 Mcg/Cap)] 1 cap IH DAILY # 1 kit 10/09/16 History of Present Illness Patient complains of: Shortness of breath and cough History of Present Illness: 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 Patient been her usual state of health until approximately 4 days ago noting worsening shortness of breath from baseline prompting him to seek evaluation by primary care initiating antibiotic for bronchitis without significant improvement propping to seek evaluation emergeny room. EMS finds her in respiratory distress placing a nonrebreather for oxygen saturations in the mid 70s. Patient denies chest pain nausea vomiting diaphoresis, admits feeling better after IV Lasix and BiPAP. She complains of a dry mouth admitting consuming large quantity of fluids and is unaware of any dietary restrictions and continues to drink alcohol and smoke daily. Hospital Course Hospital Course: Patient was admitted to the telemetry on BiPAP therapy. Following morning BiPAP was able to be weaned to nasal cannula after several breathing treatments. She was continued on IV broad-spectrum antibiotics and steroids. She was diuresed. She did transthoracic echocardiogram showed grade 2 over 4 diastolic dysfunction, EF of 50-55%. Her breathing continued to improve. Today she is on room air, her room air oxygen saturations 97%. She is ambulating in the hallway without dyspnea. Physical Exam Vital Signs: Temp Pulse Resp BP Pulse Ox 98.0 F 71 18 128/64 H 100 10/09/16 10:52 10/09/16 10:52 10/09/16 10:52 10/09/16 10:52 10/09/16 10:52 Intake & Output 10/08/16 10/09/16 10/10/16 06:59 06:59 06:59 Intake Total 850 1130 Output Total 3 Balance 850 1127 Weight 83.2 kg 83.2 kg General appearance: PRESENT: no acute distress, obese, well-developed, well- nourished Head exam: PRESENT: atraumatic, normocephalic Eye exam: PRESENT: conjunctiva pink, EOMI, PERRLA. ABSENT: scleral icterus Ear exam: PRESENT: normal external ear exam Mouth exam: PRESENT: moist, tongue midline Neck exam: ABSENT: carotid bruit, JVD, lymphadenopathy, thyromegaly Respiratory exam: PRESENT: clear to auscultation lorenza. ABSENT: rales, rhonchi, wheezes Cardiovascular exam: PRESENT: RRR. ABSENT: diastolic murmur, rubs, systolic murmur Pulses: PRESENT: normal dorsalis pedis pul Vascular exam: PRESENT: normal capillary refill GI/Abdominal exam: PRESENT: normal bowel sounds, soft. ABSENT: distended, guarding, mass, organolmegaly, rebound, tenderness Rectal exam: PRESENT: deferred Extremities exam: PRESENT: full ROM. ABSENT: calf tenderness, clubbing, pedal edema Neurological exam: PRESENT: alert, awake, oriented to person, oriented to place , oriented to time, oriented to situation, CN II-XII grossly intact. ABSENT: motor sensory deficit Psychiatric exam: PRESENT: appropriate affect, normal mood. ABSENT: homicidal ideation, suicidal ideation Skin exam: PRESENT: dry, intact, warm. ABSENT: cyanosis, rash Results Laboratory Results: 10/08/16 04:51 10/08/16 04:51 10/07/16 15:00 Sputum Gram Stain - Final 10/07/16 15:00 Sputum Sputum Culture - Final Group B Beta Streptococcus Normal Radha Impressions: Chest X-Ray 10/06/16 19:55 IMPRESSION: BORDERLINE CARDIOMEGALY WITH MILD VASCULAR CONGESTION. Chest/Abdomen CTA 10/06/16 21:40 IMPRESSION: 1. NORMAL CTA OF THE CHEST. NO PULMONARY EMBOLI. 2. MILD CARDIOMEGALY WITH SMALL PLEURAL EFFUSIONS. PROBABLE EARLY PULMONARY EDEMA. Qualifiers PATEINT BEING DISCHARGED WITH ANY OF THE FOLLOWING DIAGNOSIS?: No Plan Discharge Plan: Discharge home with family Time Spent: Less than 30 Minutes
== END 2016-10-09 12:56 | disposition home or self-care (01) | DRG 190 ==
LOC: ER 19:48 → EH 21:44 → UNDOADMIN 21:44 → EH 21:47 → 4N 23:09
PROVIDERS: ADMIT Internal Medicine; ATTEND Internal Medicine
PROC: 5A09457 Assistance with Respiratory Ventilation, 24-96 Consecutive Hours, Continuous Positive Airway Pressure (ICD-10-PCS; principal; 2016-10-06)
DX: J44.1 Chronic obstructive pulmonary disease with (acute) exacerbation (principal); J96.22 Acute and chronic respiratory failure with hypercapnia; I50.32 Chronic diastolic (congestive) heart failure; I11.0 Hypertensive heart disease with heart failure; F17.200 Nicotine dependence, unspecified, uncomplicated; Z91.19 Patient's noncompliance with other medical treatment and regimen; Z79.4 Long term (current) use of insulin; E11.9 Type 2 diabetes mellitus without complications; Z82.49 Family history of ischemic heart disease and other diseases of the circulatory system; Z79.899 Other long term (current) drug therapy; Z79.84 Long term (current) use of oral hypoglycemic drugs; Z98.51 Tubal ligation status
CPT/HCPCS: 36415; 71010; 71275; 80053; 80307; 81001; 82550; 82553; 82803; 82962; 83735; 83880; 84484; 85025; 87040; 87070; 87077; 87205; 93005; 93010; 93306; 94640; 94660; 99291; J1644; J1815; J1940; J1956; J3480; J3490; J7620

== ENCOUNTER 2016-11-26 02:19 | Inpatient (IN) | payer MEDICARE, MEDICAID ==
--- NOTE | 2016-11-26 02:27 | ER Document Report ---
ED Respiratory Problem <STEPHANIE URBAN - Last Filed: 11/26/16 04:52> - General Mode of Arrival: Ambulatory Information source: Patient TRAVEL OUTSIDE OF THE [place] IN LAST 30 DAYS: No - HPI Patient complains to provider of: Short of breath Onset: Just prior to arrival Duration: Worse/persistent Severity: Severe EMS treatments: CPAP <CELENA PRINCE - Last Filed: 11/26/16 05:32> - General Stated Complaint: DIFFICULTY BREATHING Notes: Patient is a 61-year-old female that presents to the emergency department today in severe respiratory distress. Patient on c-pap on arrival. Patient states her shortness of breath became bad all of a sudden. According to EMS patient admitted to them she is non-compliant with her Lasix medication. Patient complained of chest tightness as well. Patient denies any cough or history of [place]. (CELENA PRINCE) - Related Data Allergies/Adverse Reactions: No Known Allergies Allergy (Verified 05/25/13 16:46) Past Medical History - General Information source: [facility] Records Cannot obtain history due to: Other - severe respiratory distress - Social History Smoking Status: Current Every Day Smoker Cigarette use (# per day): Yes Frequency of alcohol use: None Drug Abuse: None Lives with: Family Family History: Reviewed & Not Pertinent, CAD, COPD, Hypertension - Past Medical History Cardiac Medical History: Reports: Hx Congestive Heart Failure, Hx Hypercholesterolemia, Hx Hypertension Pulmonary Medical History: Reports: Hx Bronchitis, Hx COPD Endocrine Medical History: Reports: Hx Diabetes Mellitus Type 1, Hx Diabetes Mellitus Type 2 Past Surgical History: Reports: Hx Orthopedic Surgery, Hx Tubal Ligation - Immunizations Immunizations up to date: Yes Hx Diphtheria, Pertussis, Tetanus Vaccination: Yes <CELENA PRINCE - Last Filed: 11/26/16 05:32> Review of Systems - Review of Systems -: Yes ROS unobtainable due to patient's medical condition - severe respiratory distress <CELENA PRINCE - Last Filed: 11/26/16 05:32> Physical Exam <STEPHANIE URBAN - Last Filed: 11/26/16 04:52> <CELENA PRINCE - Last Filed: 11/26/16 05:32> - Vital signs Vitals: Pulse Ox 69 L 11/26/16 02:21 - Notes Notes: Physical Exam: General: Alert, appears well. HEENT: Normocephalic. Atraumatic. PERRL. Extraocular movements intact. Oropharynx clear. Neck: Supple. Non-tender. Respiratory: Severe respiratory distress, on c-pap on arrival. Rales throughout bilaterally. Tripoding. Cardiovascular: Tachycardic, regular rhythm. Abdominal: Normal Inspection. Non-tender. No distension. Normal Bowel Sounds. Back: Non-tender. No deformity or step off. Extremities: Moves all four extremities. Upper extremities: Normal inspection. Normal ROM. Lower extremities: Normal inspection. No edema. Normal ROM. Neurological: Normal cognition. AAOx4. Normal speech. Psychological: Normal affect. Normal Mood. Skin: Warm. Dry. Normal color. (CELENA PRINCE) Course - Laboratory Result Diagrams: 11/26/16 02:33 11/26/16 02:33 <STEPHANIE URBAN - Last Filed: 11/26/16 04:52> - Laboratory Result Diagrams: 11/26/16 02:33 11/26/16 02:33 <CELENA PRINCE - Last Filed: 11/26/16 05:32> - Re-evaluation Re-evalutation: 11/26/16 04:49 Patient presents emergency per with severe respiratory distress on CPAP with O2 sat in the 70% range. Initial blood pressure on arrival 240/120 with bilateral radials and tripoding. Immediately upon assessment at the bedside she is started on 70 mics of nitroglycerin given 100 of Lasix significant improvement within 10-15 minutes. EKG showed sinus tachycardia 120 beats are no acute [address] segment elevation or depression. We did increase the nitro drip up to 90. After approximately 20-25 minutes she diuresed and was actually conversing well. Her blood gas showed pH of 7.20 PCO2 of 69 PO2 of 81 with a bicarbonate of 26 and a CO2 of 28 radiologist read the chest x-ray is acute CHF versus bilateral pneumonia blood cultures were obtained she is afebrile, her with broad-spectrum antibiotics although the history is not consistent with that of pneumonia but rather CHF patient significantly improved with CHF treatment. Bueno catheter was placed she diuresed significantly. Having them wean her off of the CPAP onto nasal cannula currently. Spoke with the hospitalist who agreed to admit patient to the hospital inpatient IMCU. (STEPHANIE URBAN) - Vital Signs Vital signs: Temp Pulse Resp BP Pulse Ox 98.3 F 22 H 121/88 H 97 11/26/16 04:11 11/26/16 04:11 11/26/16 04:11 11/26/16 04:11 - Laboratory Laboratory results interpreted by me: 11/26/16 11/26/16 11/26/16 02:33 02:33 02:33 WBC 17.5 H Absolute Neutrophils 11.2 H Absolute Lymphocytes 5.2 H Carbonic Acid ABG pH ABG pCO2 ABG HCO3 ABG Total CO2 ABG O2 Saturation Sodium 146.3 H Potassium 3.2 L BUN 24 H Est GFR (Non-Af Amer) 53 L Glucose 357 H Lactic Acid 4.5 H Direct Bilirubin 0.6 H NT-Pro-B Natriuret Pep Urine Protein Urine Glucose (UA) Urine Blood 11/26/16 11/26/16 11/26/16 02:33 02:33 02:55 WBC Absolute Neutrophils Absolute Lymphocytes Carbonic Acid 2.09 H ABG pH 7.20 L* ABG pCO2 69.3 H* ABG HCO3 26.5 H ABG Total CO2 28.7 H ABG O2 Saturation 93.0 L Sodium Potassium BUN Est GFR (Non-Af Amer) Glucose Lactic Acid Direct Bilirubin NT-Pro-B Natriuret Pep 1900 H Urine Protein 100 H Urine Glucose (UA) >=500 H Urine Blood SMALL H Critical Care Note - Critical Care Note Total time excluding time spent on procedures (mins): 65 <STEPHANIE URBAN - Last Filed: 11/26/16 04:52> Discharge - Discharge Admitting Provider: Hospitalist Unit Admitted: IMCU <STEPHANIE URBAN - Last Filed: 11/26/16 04:52> <CELENA PRINCE - Last Filed: 11/26/16 05:32> - Discharge Clinical Impression: severe respiratory distress, acute CHF exacerbation Scribe Attestation: 11/26/16 04:52 I personally performed the services described in the documentation reviewed the documentation recorded by my scribe in my presence and it accurately and completely records my words and actions (STEPHANIE URBAN) Scribe Documentation - Scribe Written by Scribe:: Lamberto Espana, [id number] 11/26/2016 acting as scribe for :: Rayshawn <SURESH,CELENA - Last Filed: 11/26/16 05:32>
[2016-11-26] MEDS ORDERED: NITROGLYCERIN/D5W 250 ML IV PRN (02:45)
[2016-11-26] MEDS ORDERED: FUROSEMIDE INJ/PF 100 MG/10 ML SDV IV ONE (02:46)
[2016-11-26 02:49] LABS: ARTERIAL BLOOD BASE EXCESS -3.3 mmol/L
[2016-11-26 02:53] LABS: ABSOLUTE BASOPHILS # (AUTO) 0.1 10^3/uL (0.0-0.2); ABSOLUTE EOSINOPHILS # (AUTO) 0.2 10^3/uL (0.0-0.6); ABSOLUTE LYMPHOCYTES (AUTO) 5.2 10^3/uL (0.5-4.7); ABSOLUTE MONOCYTES (AUTO) 0.8 10^3/uL (0.1-1.4); ABSOLUTE NEUT (AUTO) 11.2 10^3/uL (1.7-8.2); BASOPHILS % (AUTO) 0.4 % (0-2); EOSINOPHILS % (AUTO) 1.2 % (0-6); HEMATOCRIT 43.6 % (36.0-47.0); HEMOGLOBIN 14.4 g/dL (12.0-15.5); HGB HCT DIFFERENCE -0.4; LYMPHOCYTES % (AUTO) 29.7 % (13-45); MEAN CORPUSCULAR HEMOGLOBIN 30.5 pg (27.0-33.4); MEAN CORPUSCULAR VOLUME 93 fl (80-97); MONOCYTES % (AUTO) 4.8 % (3-13); RED BLOOD COUNT 4.71 10^6/uL (3.72-5.28); RED CELL DISTRIBUTION WIDTH 13.9 % (11.5-14.0); SEGMENTED NEUTROPHILS % (AUTO) 63.9 % (42-78); WHITE BLOOD COUNT 17.5 10^3/uL (4.0-10.5)
[2016-11-26 02:58] LABS: PROTHROMBIN TIME 12.1 SEC (11.4-15.4)
[2016-11-26 03:02] LABS: ALANINE AMINOTRANSFERASE 30 U/L (9-52); ALBUMIN 4.1 g/dL (3.5-5.0); ALKALINE PHOSPHATASE 90 U/L (38-126); ANION GAP 16 (5-19); ASPARTATE AMINO TRANSFERASE 35 U/L (14-36); BILIRUBIN,DIRECT 0.6 mg/dL (0.0-0.4); BLOOD UREA NITROGEN 24 mg/dL (7-20); CALCIUM 9.1 mg/dL (8.4-10.2); CARBON DIOXIDE 27 mmol/L (22-30); CHLORIDE 103 mmol/L (98-107); CREATININE RESULT 1.06 mg/dL (0.52-1.25); GLUCOSE 357 mg/dL (75-110); POTASSIUM 3.2 mmol/L (3.6-5.0); SODIUM 146.3 mmol/L (137-145)
[2016-11-26 03:17] LABS: TROPONIN I < 0.012 ng/mL
[2016-11-26 03:23] LABS: APPEARANCE,URINE CLEAR; BILIRUBIN,URINE NEGATIVE (NEGATIVE); GLUCOSE, URINE >=500 mg/dL (NEGATIVE); KETONES,URINE NEGATIVE (NEGATIVE); LEUKOCYTE ESTERASE,URINE NEGATIVE (NEGATIVE); NITRITE,URINE NEGATIVE (NEGATIVE); PROTEIN,URINE 100 mg/dL (NEGATIVE); URINE SPECIFIC GRAVITY 1.003; UROBILINOGEN,URINE NEGATIVE mg/dL (<2.0)
[2016-11-26] MEDS ORDERED: AZITHROMYCIN INJ 500 MG VIAL IV ONE (03:37)
[2016-11-26] MEDS ORDERED: CEFTRIAXONE INJ 1000 MG VIAL IV ONE (03:37)
[2016-11-26] MEDS: POTASSI CL 20 MEQ/50 ML RIDER 50 ML IV SCH ×2 (04:08→05:46)
[2016-11-26 05:34] LABS: ADD ON TESTING BLD IN LAB ACKNOWLEDGE
[2016-11-26 05:46] LABS: MAGNESIUM 1.7 mg/dL (1.6-2.3)
[2016-11-26] MEDS ORDERED: GLUCAGON,HUMAN RECOMB 1 MG INJ IM PRN (07:18)
[2016-11-26] MEDS ORDERED: DEXTROSE 50%-WATER 25 GM/50 ML DISP.SYRIN IV PRN ×2 (07:18)
[2016-11-26] MEDS ORDERED: DEXTROSE 40% GEL 15 GM TUBE PO PRN ×2 (07:18)
[2016-11-26] MEDS ORDERED: ACETAMINOPHEN 325 MG TABLET PO PRN (07:21)
[2016-11-26] MEDS ORDERED: 1/2 NORMAL SALINE 1,000 ML IV PRN (07:21)
[2016-11-26] MEDS ORDERED: ALBUTEROL SULFATE 0.083% NEB 2.5 MG/3 ML AMPUL NEB PRN ×2 (07:21→10:55)
[2016-11-26] MEDS ORDERED: GUAIFENESIN SYRP 200 MG/10 ML UDC PO PRN (07:21)
[2016-11-26] MEDS ORDERED: IPRATROPIUM/ALBUTEROL 0.5-2.5 MG/3 ML AMPUL NEB SCH (08:00)
[2016-11-26] MEDS ORDERED: NICOTINE 14 MG/24 HR PATCH.TD24 TD PRN (08:38)
--- NOTE | 2016-11-26 08:43 | PDOC H&P ---
History of Present Illness Admission Date/PCP: 11/26/16 04:55 JEWELS BENITEZ MD Patient complains of: BREATHING DIFFICULTY, CHEST PAIN History of Present Illness: KAVITA PAINTER is a 61 year old -Russian female with known underlying diastolic congestive heart failure, COPD, insulin-dependent diabetes mellitus, hypertension, hyperlipidemia, and with a reported history of noncompliance with her medications, along with ongoing tobacco use, who presents to the emergency room for evaluation of above complaints. Patient has been discussed with emergency room physician who evaluated the patient. Patient herself is still on BiPAP, and is somewhat fatigued, and while she is able to provide some information, a significant portion concerning both acute and chronic aspects of her health care is provided by her daughter Alida, who is her surrogate health care decision maker and is present at her side with patient's approval.. Patient described sudden onset of pronounced shortness of breath. Upon emergency room arrival, O2 saturation on CPAP in the 70 percentile range, with blood pressure 240/120, and patient in severe respiratory distress. She has responded nicely to a combination of BiPAP, nitroglycerin drip, and intravenous Lasix. Breathing much more comfortably now. Was having chest tightness and discomfort when the respiratory distress was at its worst, but now this has resolved. She does describe a 3 to four-week history of mild left shoulder pain. Denies abdominal pain. No fever chills, diarrhea or dysuria, nausea vomiting. Lately he has been compliant with her medications, but does admit that she has been eating quite a bit of fried chicken lately. Daughter confirms this. Hospitalized on our service October 06 through the of this year, with discharge diagnoses including COPD exacerbation, congestive heart failure, and hypercapnic respiratory failure. Echocardiogram during that hospital stay revealed ejection fraction of 50-55%, with diastolic dysfunction. History and physical and discharge summary have been reviewed. Laboratory results are listed in [facility] and are reviewed. X-ray summary results are listed below, with full report(s) reviewed. . EKG reviewed. And compared to tracing from October 06 of this year. Social history/personal habits: Single. One child. Unemployed. Half-pack of cigarettes per day. No alcohol or illicit drug use. Allergies/adverse reactions NKDA. Home medications Home medications initially autopopulated into [facility] may not accurately reflect patient's true medications, dosages, and/or frequencies. csr technician to reconcile medications. Unfortunately, patient uncertain of medications/dosages/frequencies. REVIEW OF SYSTEMS: Constitutional: No fever or chills. Eyes: Wears glasses. ENT: No swallowing problems or complaints. Partial hearing loss. Pulmonary: See history and present illness. Cardiovascular: See history and present illness. Gastrointestinal: No current complaints, including nausea or vomiting. Skin: No current complaints, including rashes. Hematologic: No unusual easy bruising or bleeding. Neurologic: No current complaints, including numbness or tingling. Musculoskeletal: No current complaints, including painful joints. Psychiatric: No current complaints, including anxiety or depression. Endocrine: No current complaints, including polyuria. Genitourinary: No current complaints, including dysuria. PHYSICAL EXAMINATION: 5 feet 5 inches tall. 89 kg. BMI 32.7 kg/m. Blood pressure 130/81. Pulse 107. 98 percent saturation on BiPAP 14/6, FiO2 40%. Respirations are 22 and unlabored. Somewhat obese otherwise well-developed -Russian female appearing a bit younger than her stated age. Somewhat fatigued, but otherwise awake alert and cooperative. Mildly anxious, without agitation. Female emergency room nurse Linda is present. Daughter Alida is present at her side; patient approves. Skin is warm and dry. No grossly obvious evidence of rash in areas of skin examined. No subcutaneous nodules palpated. ENT: Hearing grossly normal to normal conversation. Tongue midline on protrusion pink and slightly tacky. Exam slightly limited by BiPAP mask with attaching straps. Eyes: No scleral icterus. Pupils equal and reactive to light at 4 mm. Derry conjunctivae. Neck is supple and nontender to gentle active range of motion and palpation. Midline trachea. No palpable thyroid nodule mass enlargement or tenderness. Lymphatic: No palpable cervical or clavicular nodes. Neck and lymphatic exams limited by patient body habitus. Exam slightly limited by BiPAP mask with attaching straps. Psychiatric: Fair to reasonable insight into acute and chronic medical issues. Oriented to time location and why here. Lungs: Auscultation reveals clear and equal breath sounds bilaterally. No use of accessory respiratory muscles. Cardiovascular: Heart regular rate and rhythm, without gallop murmur or rub. No abdominal aortic bruits. No ankle or pedal edema. Faintly palpable posterior tibial pulses. Difficult to evaluate for carotid bruit due to airway sounds from BiPAP device. Abdomen: soft, somewhat obese, nontender with positive bowel sounds. Unable to adequately evaluate abdomen for masses or organomegaly due to body habitus. Extremities: Feet are warm and dry. No calf tenderness to compression. No grossly obvious visual evidence of calf swelling. Gentle manipulation of lower extremities fails to reveal any obvious evidence of injury or instability to knees hips or ankles. Neurologic: Moves upper extremities grossly normally. Patellar reflexes absent. Absent Babinski. Light touch is intact at feet. Dorsiflexion and plantarflexion of feet 5 / 5 and symmetric. Past Medical History Cardiac Medical History: Reports: Congestive Heart Failure - Diastolic, Hyperlipidema, Hypertension Denies: DVT, Myocardial Infarction, Pulmonary Embolism Pulmonary Medical History: Reports: Bronchitis, Chronic Obstructive Pulmonary Disease (COPD) Denies: Asthma, Sleep Apnea, Tuberculosis EENT Medical History: Reports: Eyes - Glasses, Ears - Partial hearing loss Denies: Throat Neurological Medical History: Denies: Hemorrhagic CVA, Ischemic CVA, Seizures Endocrine Medical History: Reports: Diabetes Mellitus Type 1, Diabetes Mellitus Type 2 Denies: Hyperthyroidism, Hypothyroidism Renal/ Medical History: Reports: None GI Medical History: Denies: Cirrhosis, Gastroesophageal Reflux Disease, Hepatitis, Peptic Ulcer Disease Musculoskeltal Medical History: Denies: Arthritis Skin Medical History: Reports: None Psychiatric Medical History: Reports: Tobacco Dependency Denies: Alcohol Dependency, Depression, General Anxiety Disorder, Substance Abuse Hematology: Reports: None Infectious Medical History: Denies: Clostridium Difficile, Hepatitis B, Hepatitis C, Methicillin- Resistant Staph Aureus Past Surgical History Past Surgical History: Reports: Orthopedic Surgery, Tubal Ligation Social History Information Source: Patient, Relative - Daughter, Emergency Med Personnel, [facility] Records Lives with: Family Smoking Status: Current Every Day Smoker Frequency of Alcohol Use: None Hx Recreational Drug Use: No Drugs: None Hx Prescription Drug Abuse: No - Advance Directive Resuscitation Status: Full Code Surrogate healthcare decision maker:: Daughter Alida Family History Family History: Reviewed & Not Pertinent, CAD, COPD, Hypertension, Malignancy Parental Family History Reviewed: Yes - mother of cancer; father of heart trouble. Children Family History Reviewed: Yes - Diabetic Sibling(s) Family History Reviewed.: Yes - Diabetic Medication/Allergy Home Medications: Albuterol Sulfate [Ventolin Hfa] 1 puff IH Q4 PRN 11/26/16 Atorvastatin Calcium [Lipitor 20 mg Tablet] 20 mg PO QHS 05/06/17 Benazepril HCl [Lotensin] 20 mg PO DAILY 11/26/16 Glimepiride [Amaryl 4 mg Tablet] 8 mg PO DAILY 11/26/16 Metformin HCl [Glucophage] 1,000 mg PO BID 11/26/16 Metoprolol Tartrate [Lopressor] 50 mg PO Q12 11/26/16 Sitagliptin Phosphate [Januvia] 100 mg PO DAILY 11/26/16 Allergies/Adverse Reactions: No Known Allergies Allergy (Verified 05/25/13 16:46) Physical Exam Vital Signs: Temp Pulse Resp BP Pulse Ox 98.5 F 25 H 115/74 95 11/26/16 06:41 11/26/16 07:20 11/26/16 07:20 11/26/16 07:20 Intake & Output 11/25/16 11/26/16 11/27/16 00:59 00:59 00:59 Weight 89 kg Results Laboratory Results: 11/26/16 07:00 Lactic Acid 1.2 Impressions: Chest X-Ray 11/26/16 00:00 IMPRESSION: Moderate pulmonary edema pattern. Differential diagnosis includes multifocal pneumonia. Assessment & Plan - Diagnosis (1) Acute on chronic diastolic (congestive) heart failure Is this a current diagnosis for this admission?: YesPlan: Likely due at least partly to dietary indiscretion. Dietary consult. Wean from nitroglycerin drip. Resume home medications as appropriate once these have been determined and reviewed. (2) Acute on chronic respiratory failure with hypoxia and hypercapnia Is this a current diagnosis for this admission?: YesPlan: Patient will also be treated as for COPD exacerbation . Incentive spirometry twice a day. Scheduled DuoNeb's. PRN albuterol nebs daily prednisone. Antibiotics will consist of intravenous Zithromax along with cefepime.. I strongly encouraged patient to notify staff should patient feel that breathing is worsening. Patient is a full code. I have strongly encouraged patient not to get out of bed without notifying staff , , to avoid a fall with injury. Knee high SCDs for DVT prophylaxis, along with subcutaneous Lovenox Impression and plans were discussed with patient, and daughter, both of whom concur. Time spent in evaluation and management of patient: 71 critical care minutes. (3) Dietary indiscretion Is this a current diagnosis for this admission?: Yes (4) Hypokalemia Is this a current diagnosis for this admission?: YesPlan: Potassium replacement with follow-up chemistry. (5) Diabetes 1.5, managed as type 1 Is this a current diagnosis for this admission?: YesPlan: Accu-Cheks with appropriate sliding scale coverage. Resume home medications as appropriate once these have been determined and reviewed. (6) Diabetes 1.5, managed as type 2 Is this a current diagnosis for this admission?: Yes (7) Tobacco abuse Is this a current diagnosis for this admission?: YesPlan: When necessary nicotine patch. - Inpatient Certification Based on my medical assessment, after consideration of the patient's comorbidities, presenting symptoms, or acuity I expect that the services needed warrant INPATIENT care.: Yes I certify that my determination is in accordance with my understanding of Medicare's requirements for reasonable and necessary INPATIENT services [42 CFR 412.3e].: Yes Medical Necessity: Need Close Monitoring Due to Risk of Patient Decompensation, Need For IV Fluids, Need For Continuous Telemetry Monitoring, Need for Nebulizer Therapy and Monitoring of Response, Need for IV Antibiotics, Risk of Diagnosis Which Will Require Inpatient Eval/Care/Monitoring Post Hospital Care: D/C or Transfer Summary
[2016-11-26] MEDS ORDERED: PREDNISONE 20 MG TABLET PO SCH (10:00)
[2016-11-26] MEDS ORDERED: CEFEPIME 2 GM/D5W RTU 50 ML IV SCH (10:00)
[2016-11-26 10:11] LABS: VENOUS BLOOD BASE EXCESS 1.1 mmol/L; VENOUS BLOOD PCO2 48.4 mmHg (35-63); VENOUS BLOOD PH 7.37 (7.30-7.42)
[2016-11-26 10:25] LABS: ANION GAP 11 (5-19); BLOOD UREA NITROGEN 27 mg/dL (7-20); CALCIUM 8.7 mg/dL (8.4-10.2); CARBON DIOXIDE 26 mmol/L (22-30); CHLORIDE 105 mmol/L (98-107); GLUCOSE 185 mg/dL (75-110); SODIUM 142.4 mmol/L (137-145)
[2016-11-26 10:34] LABS: POTASSIUM 4.5 mmol/L (3.6-5.0)
[2016-11-26] MEDS: METOPROLOL TARTRATE 50 MG TABLET PO SCH ×2 (10:51→22:56)
[2016-11-26] MEDS: BENAZEPRIL HCL 20 MG TABLET PO SCH (10:51)
[2016-11-26] MEDS: CEFEPIME HCL 2 GM in DEXTROSE 5%-WATER 50 ML IV SCH ×2 (10:53→22:57)
[2016-11-26] MEDS ORDERED: POTASSIUM CHLORIDE 10 MEQ TABLET.SA PO ONE (11:30)
[2016-11-26] MEDS ORDERED: FUROSEMIDE INJ/PF 40 MG/4 ML SDV IV ONE (11:45)
[2016-11-26] MEDS: SITAGLIPTIN PHOSPHATE 50 MG TABLET PO SCH (12:53)
[2016-11-26] MEDS: ENOXAPARIN SODIUM INJ 40 MG/0.4 ML DISP.SYRIN SUBCUT SCH (13:07)
--- NOTE | 2016-11-26 15:37 | PDOC PROGRESS REPORT ---
Subjective Progress Note for:: 11/26/16 Subjective:: The patient was seen earlier today on rounds. Overall symptoms dyspnea have resolved. Upon my entering the room the patient did not have her oxygen on immediately her chart sats were checked which were found to be greater than 96% . Bueno is draining clear yellow urine. The patient denies any nausea, vomiting, diarrhea, dizziness, chest pain, heart palpitations, fevers, or chills. The patient has remained afebrile. Blood pressures have been in a good range. When prompted the patient voices no other concerns at this time. Review of systems: The rest of the review of systems is negative. Physical Exam Vital Signs: Temp Pulse Resp BP Pulse Ox 98.7 F 85 16 147/75 H 97 11/26/16 11:31 11/26/16 11:31 11/26/16 11:31 11/26/16 11:31 11/26/16 11:31 Intake & Output 11/24/16 11/25/16 11/26/16 23:59 23:59 23:59 Weight 87.2 kg General appearance: PRESENT: no acute distress, cooperative, well-developed, well-nourished Head exam: PRESENT: atraumatic, normocephalic Eye exam: PRESENT: conjunctiva pink, EOMI, PERRLA. ABSENT: scleral icterus Ear exam: PRESENT: normal external ear exam Mouth exam: PRESENT: moist, tongue midline Neck exam: ABSENT: carotid bruit, JVD, lymphadenopathy, thyromegaly Respiratory exam: PRESENT: crackles - bilateral basal crackles, symmetrical, unlabored. ABSENT: rales, rhonchi, tachypnea, wheezes Cardiovascular exam: PRESENT: RRR. ABSENT: diastolic murmur, rubs, systolic murmur Pulses: PRESENT: normal dorsalis pedis pul Vascular exam: PRESENT: normal capillary refill GI/Abdominal exam: PRESENT: normal bowel sounds, soft. ABSENT: distended, guarding, mass, organolmegaly, rebound, tenderness Rectal exam: PRESENT: deferred Extremities exam: PRESENT: full ROM. ABSENT: calf tenderness, clubbing, pedal edema Neurological exam: PRESENT: alert, awake, oriented to person, oriented to place , oriented to time, oriented to situation, CN II-XII grossly intact. ABSENT: motor sensory deficit Psychiatric exam: PRESENT: appropriate affect, normal mood. ABSENT: homicidal ideation, suicidal ideation Skin exam: PRESENT: dry, intact, warm. ABSENT: cyanosis, rash Results Laboratory Results: 11/26/16 09:59 11/26/16 11/26/16 09:59 09:59 VBG pH 7.37 VBG pCO2 48.4 VBG HCO3 27.0 VBG Base Excess 1.1 Sodium 142.4 Potassium 4.5 D Chloride 105 Carbon Dioxide 26 Anion Gap 11 BUN 27 H Creatinine 0.90 Est GFR ( Amer) > 60 Est GFR (Non-Af Amer) > 60 Glucose 185 H Calcium 8.7 11/26/16 09:59 Troponin I 0.127 Impressions: Chest X-Ray 11/26/16 00:00 IMPRESSION: Moderate pulmonary edema pattern. Differential diagnosis includes multifocal pneumonia. Assessment & Plan - Diagnosis (1) COPD exacerbation Is this a current diagnosis for this admission?: YesPlan: Will continue current medications patient is off the BiPAP blood gas is normalized (2) Acute on chronic respiratory failure with hypoxia and hypercapnia Is this a current diagnosis for this admission?: YesPlan: Multifocal but most SECONDARY to #3. Patient did have a white count therefore will continue antibiotics for now. (3) Acute on chronic diastolic (congestive) heart failure Is this a current diagnosis for this admission?: YesPlan: The patient was diuresing emergency department unfortunately output is not reflective of this. Will once again diurese with IV Lasix. Will resume the patient's home medications including beta alexandra and ASHISH inhibitor. The patient did have a troponin bump which most likely secondary to #1. However the patient has not been seen or evaluated by cardiology at any point. Has any history of heart catheterization or stress test. Review of echo done last month did show diastolic dysfunction and possible RV failure. Will consult cardiology. (4) Abnormal LFTs Is this a current diagnosis for this admission?: YesPlan: Most likely due to volume overload will repeat in the a.m. (5) Hypokalemia Is this a current diagnosis for this admission?: YesPlan: This was replaced and improved. However will continue to supplement given ongoing diuresis. (6) Diabetes mellitus type 2 in obese Is this a current diagnosis for this admission?: YesPlan: Will continue sliding scale coverage and Januvia. Will defer metformin for now. (7) Dietary indiscretion Is this a current diagnosis for this admission?: Yes (9) Tobacco abuse Is this a current diagnosis for this admission?: YesPlan: Spent 3 minutes discussing smoking cessation education. The patient declines any pharmacological intervention at this time however will add a PRN nicotine patch. - Time Time Spent with patient: on this visit including assessment, plan, physical examination, family meeting, specialty collaboration, and patient education is 35 minutes. Time Spent with patient: 35 or more minutes Medications reviewed and adjusted accordingly: Yes Anticipated discharge: Home Within: within 48 hours Disposition: The patient is a full code. Pending patient's symptomatology and diagnostic findings will reevaluate in the a.m.
--- NOTE | 2016-11-26 17:28 | PDOC CONSULTATION ---
Consultation Consult Date: 11/26/16 Attending physician:: RENE COYNE Consult reason:: Shortness of breath, CHF History of Present Illness Admission Date/PCP: 11/26/16 07:22 JEWELS BENITEZ MD Patient complains of: Shortness of breath History of Present Illness: KAVITA PAINTER is a 61 year old -British female with known underlying diastolic congestive heart failure, COPD, insulin-dependent diabetes mellitus, hypertension, hyperlipidemia, and with a reported history of noncompliance with her medications, along with ongoing tobacco use, who admitted through the emergency room with severe hypertension, congestive heart failure and some chest discomfort. Chest discomfort has resolved and there has been no recurrence. Patient was however noted to have troponin I elevation in the low suggestive range. I was therefore asked to evaluate this patient. Patient presented with sudden onset of pronounced shortness of breath. Upon emergency room arrival, O2 saturation on CPAP in the 70 percentile range, with blood pressure 240/120, and patient severe respiratory distress. She has responded nicely to a combination of BiPAP, nitroglycerin drip, and intravenous Lasix. Breathing much more comfortably now. She also describe a 3 to four-week history of mild left shoulder pain but no central chest discomfort. Patient denied any prior history of myocardial infarction or angina but gives history of congestive heart failure. Patient denied any sustained palpitations, syncope, near syncope. Hospitalized on [facility] October 06 through the of this year , with discharge diagnoses including COPD exacerbation, congestive heart failure , and hypercapnic respiratory failure. Echocardiogram during that hospital stay revealed ejection fraction of 50-55%, with diastolic dysfunction. History and physical and discharge summary have been reviewed. Past Medical History Cardiac Medical History: Reports: Congestive Heart Failure - Diastolic, Hyperlipidema, Hypertension Denies: DVT, Myocardial Infarction, Pulmonary Embolism Pulmonary Medical History: Reports: Bronchitis, Chronic Obstructive Pulmonary Disease (COPD) Denies: Asthma, Sleep Apnea, Tuberculosis EENT Medical History: Reports: Eyes - Glasses, Ears - Partial hearing loss Denies: Throat Neurological Medical History: Denies: Hemorrhagic CVA, Ischemic CVA, Seizures Endocrine Medical History: Reports: Diabetes Mellitus Type 2 Denies: Hyperthyroidism, Hypothyroidism Renal/ Medical History: Reports: None GI Medical History: Denies: Cirrhosis, Gastroesophageal Reflux Disease, Hepatitis, Peptic Ulcer Disease Musculoskeltal Medical History: Denies: Arthritis Skin Medical History: Reports: None Psychiatric Medical History: Reports: Tobacco Dependency Denies: Alcohol Dependency, Depression, General Anxiety Disorder, Substance Abuse Hematology: Reports: None Infectious Medical History: Denies: Clostridium Difficile, Hepatitis B, Hepatitis C, Methicillin- Resistant Staph Aureus Past Surgical History Past Surgical History: Reports: Orthopedic Surgery, Tubal Ligation Social History Information Source: Patient Lives with: Family Smoking Status: Current Every Day Smoker Frequency of Alcohol Use: None Hx Recreational Drug Use: No Drugs: None Hx Prescription Drug Abuse: No - Advance Directive Resuscitation Status: Full Code Surrogate healthcare decision maker:: Patient's daughter is the surrogate decision maker Family History Family History: Reviewed & Not Pertinent, CAD, COPD, Hypertension, Malignancy Parental Family History Reviewed: Yes Children Family History Reviewed: Yes Sibling(s) Family History Reviewed.: Yes Medication/Allergy Home Medications: Albuterol Sulfate [Ventolin Hfa] 1 puff IH Q4 PRN 11/26/16 Atorvastatin Calcium [Lipitor 20 mg Tablet] 20 mg PO QHS 11/26/16 Benazepril HCl [Lotensin] 20 mg PO DAILY 11/26/16 Glimepiride [Amaryl 4 mg Tablet] 8 mg PO DAILY 11/26/16 Metformin HCl [Glucophage] 1,000 mg PO BID 11/26/16 Metoprolol Tartrate [Lopressor] 50 mg PO Q12 11/26/16 Sitagliptin Phosphate [Januvia] 100 mg PO DAILY 11/26/16 Allergies/Adverse Reactions: No Known Allergies Allergy (Verified 05/25/13 16:46) Review of Systems Review of Systems: Please see history of present illness and past medical history as wall. Constitutional: No fever or chills reported. Head : No recent chronic headaches, recent head injury. Eyes: No recent eye pain, diplopia, redness, discharge, acute visual changes. Ears: No recent chronic ear pain, acute hearing loss, ear discharge. Oral cavity: No recent ulcerations, bleeding, oral cavity discomfort. Neck: No recent acute neck pain reported. Hematologic: No recent easy bruising or bleeding or hematologic malignancy reported. Lymphatic: No recent lymphatic malignancy, chronic lymphadenopathy reported yet Cardiovascular system review: See history of present illness. Respiratory system review: Recent cough noted but no history of hemoptysis, blood clots in the lungs reported. Mild Shortness of breath on exertion Gastrointestinal system review: Negative for any recent acute or chronic abdominal pain, hematemesis, melena, recent change in bowel habits. Genitourinary system review: No recent acute or chronic hematuria, flank pain, UTI etc. reported. Skin system review: Negative for any recent abnormal bruising, no rash, no pruritus reported. Neurologic: No prior history of strokes, mini strokes, seizure disorder. Psychologic: No history of major psychosis or major depression reported. Musculoskeletal: Minor aches and pains reported. No acute joint swelling reported. Endocrine: No recent polyuria, polydipsia, recent heat or cold intolerance. Physical Exam Vital Signs: Temp Pulse Resp BP Pulse Ox 98.4 F 81 16 131/67 H 97 11/26/16 16:20 11/26/16 16:20 11/26/16 16:20 11/26/16 16:20 11/26/16 16:20 Intake & Output 11/25/16 11/26/16 11/27/16 06:59 06:59 06:59 Intake Total 1830 Output Total 3450 Balance -1620 Weight 87.2 kg Exam: GENERAL: well-nourished and in no acute distress. Alert and oriented x3 HEAD: Atraumatic, normocephalic. EYES: Pupils equal round and reactive to light, extraocular movements intact, sclera anicteric, conjunctiva are normal. ENT: TMs normal, nares patent, oropharynx clear without exudates. Moist mucous membranes. No oral ulcerations or bleeding gums noted NECK: supple without lymphadenopathy. Trachea is central. No cervical or axillary lymphadenopathy noted. Carotids are 2+, JVD 10-12 CM LUNGS: Respiration seems nonlabored, no significant accessory muscle action noted. Bibasal a fine crackles are noted No significant dullness noted on percussion. CHEST: Palpation of the chest wall shows no significant chest wall tenderness. No other significant abnormalities noted. 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 ABDOMEN: Soft, no significant tenderness appreciated, normoactive bowel sounds. No guarding, no rebound. No rigidity noted . No masses appreciated. EXTREMITIES: Pedal pulses are 1-2+, no calf tenderness noted. No clubbing or cyanosis.1+ pedal edema noted NEUROLOGICAL: Focused neurological exam showed no significant neurologic deficit. Normal speech, no focal weakness appreciated. PSYCH: Normal mood, normal affect. Judgment and insight within normal limits. SKIN: No significant ecchymosis, rash, ulcerations or signs of pruritus noted. MUSCULOSKELETAL EXAM: No significant joint swelling noted. Results Laboratory Results: 11/26/16 09:59 11/26/16 11/26/16 09:59 09:59 VBG pH 7.37 VBG pCO2 48.4 VBG HCO3 27.0 VBG Base Excess 1.1 Sodium 142.4 Potassium 4.5 D Chloride 105 Carbon Dioxide 26 Anion Gap 11 BUN 27 H Creatinine 0.90 Est GFR ( Amer) > 60 Est GFR (Non-Af Amer) > 60 Glucose 185 H Calcium 8.7 11/26/16 11/26/16 09:59 14:40 Troponin I 0.127 0.106 EKG Comments: This is not available for review. Chest x-ray reviewed shows pulmonary edema Impressions: Chest X-Ray 11/26/16 00:00 IMPRESSION: Moderate pulmonary edema pattern. Differential diagnosis includes multifocal pneumonia. Assessment & Plan - Diagnosis (1) Elevated troponin I level Is this a current diagnosis for this admission?: Yes (2) Hypertensive emergency Is this a current diagnosis for this admission?: Yes (3) Acute on chronic diastolic (congestive) heart failure Is this a current diagnosis for this admission?: Yes (4) Acute on chronic respiratory failure with hypoxia and hypercapnia Is this a current diagnosis for this admission?: Yes (5) Diabetes mellitus type 2 in obese Is this a current diagnosis for this admission?: Yes (6) Tobacco abuse Is this a current diagnosis for this admission?: Yes - Notes Notes: Elevated troponin I: Most likely related to severe hypertension and CHF rather than acute coronary syndrome. Patient did have some chest pain but that's probably related to severe hypertension. Hypertensive emergency patient has severely elevated blood pressure on presentation. Currently this seems coming under better control. Her pressure goal should be 135/85 or less. Acute on chronic diastolic heart failure: Continue diuretic therapy. Acute on chronic respiratory failure with hypoxemia and hypercapnia: This is precipitated by CHF on top of COPD. Patient has been advised to quit smoking. Patient currently on some supplemental oxygen. Diabetes2: This is being managed adequately by hospitalist. Tobacco abuse: Patient has been advised to quit smoking. - Time Time Spent: 30 to 50 Minutes - CODE STATUS was discussed, patient remains full code. Surrogate decision-maker unchanged. Multiple medical problems were addressed.More than 50% of the time spent coordinating care, discussing management plans with involved caregivers. Management plans discussed with involved personnels. Medical decision making was of moderate to high complexity , patient's has multiple severe comorbidities. Medications reviewed and adjusted accordingly: Yes
[2016-11-26] MEDS ORDERED: AMLODIPINE BESYLATE 5 MG TABLET PO ONE (17:45)
[2016-11-26] MEDS: LANSOPRAZOLE 30 MG TAB.RAP.DR PO SCH (18:12)
[2016-11-26] MEDS: INSULIN LISPRO 100 UNIT/ML 3 ML VIAL SUBCUT PRN ×2 (18:13→22:50)
[2016-11-26] MEDS: FUROSEMIDE INJ/PF 40 MG/4 ML SDV IV SCH (18:13)
--- NOTE | 2016-11-26 18:22 | EKG REPORT ---
SEVERITY:- ABNORMAL ECG - SINUS RHYTHM PROBABLE LEFT ATRIAL ABNORMALITY NONSPECIFIC T ABNORMALITIES, ANT-LAT LEADS BORDERLINE PROLONGED QT INTERVAL : Confirmed by: Rogelio Leiva MD 26-Nov-2016 18:22:07
[2016-11-26] MEDS: POTASSIUM CHLORIDE 10 MEQ TABLET.SA PO SCH (22:57)
[2016-11-26] MEDS: ATORVASTATIN CALCIUM 20 MG TABLET PO SCH (22:57)
[2016-11-27] MEDS: LANSOPRAZOLE 30 MG TAB.RAP.DR PO SCH ×2 (06:16→18:23)
[2016-11-27] MEDS: FUROSEMIDE INJ/PF 40 MG/4 ML SDV IV SCH ×2 (06:16→18:23)
[2016-11-27 06:38] LABS: ABSOLUTE BASOPHILS # (AUTO) 0.1 10^3/uL (0.0-0.2); ABSOLUTE EOSINOPHILS # (AUTO) 0.1 10^3/uL (0.0-0.6); ABSOLUTE LYMPHOCYTES (AUTO) 2.4 10^3/uL (0.5-4.7); ABSOLUTE MONOCYTES (AUTO) 1.2 10^3/uL (0.1-1.4); ABSOLUTE NEUT (AUTO) 13.7 10^3/uL (1.7-8.2); BASOPHILS % (AUTO) 0.6 % (0-2); EOSINOPHILS % (AUTO) 0.4 % (0-6); HEMATOCRIT 40.8 % (36.0-47.0); HEMOGLOBIN 13.7 g/dL (12.0-15.5); HGB HCT DIFFERENCE 0.3; LYMPHOCYTES % (AUTO) 13.8 % (13-45); MEAN CORPUSCULAR HEMOGLOBIN 30.9 pg (27.0-33.4); MEAN CORPUSCULAR HGB CONC 33.6 g/dL (32.0-36.0); MEAN CORPUSCULAR VOLUME 92 fl (80-97); MONOCYTES % (AUTO) 7.1 % (3-13); RED BLOOD COUNT 4.44 10^6/uL (3.72-5.28); RED CELL DISTRIBUTION WIDTH 14.2 % (11.5-14.0); SEGMENTED NEUTROPHILS % (AUTO) 78.1 % (42-78); WHITE BLOOD COUNT 17.5 10^3/uL (4.0-10.5)
[2016-11-27 06:56] LABS: ALANINE AMINOTRANSFERASE 26 U/L (9-52); ALBUMIN 4.1 g/dL (3.5-5.0); ALKALINE PHOSPHATASE 61 U/L (38-126); ANION GAP 13 (5-19); ASPARTATE AMINO TRANSFERASE 16 U/L (14-36); BILIRUBIN,DIRECT 0.5 mg/dL (0.0-0.4); BILIRUBIN,TOTAL 1.3 mg/dL (0.2-1.3); BLOOD UREA NITROGEN 37 mg/dL (7-20); CALCIUM 9.9 mg/dL (8.4-10.2); CARBON DIOXIDE 22 mmol/L (22-30); CHLORIDE 105 mmol/L (98-107); CREATININE RESULT 0.87 mg/dL (0.52-1.25); GLUCOSE 153 mg/dL (75-110); MAGNESIUM 1.7 mg/dL (1.6-2.3); POTASSIUM 4.2 mmol/L (3.6-5.0); SODIUM 139.9 mmol/L (137-145); TOTAL PROTEIN 7.5 g/dL (6.3-8.2)
[2016-11-27] MEDS: BENAZEPRIL HCL 20 MG TABLET PO SCH (08:26)
[2016-11-27] MEDS: AMLODIPINE BESYLATE 5 MG TABLET PO SCH (08:26)
[2016-11-27] MEDS: METOPROLOL TARTRATE 50 MG TABLET PO SCH ×2 (08:26→22:12)
[2016-11-27] MEDS: GLIMEPIRIDE 4 MG TABLET PO SCH (08:27)
[2016-11-27] MEDS: SITAGLIPTIN PHOSPHATE 50 MG TABLET PO SCH (08:27)
[2016-11-27] MEDS: ENOXAPARIN SODIUM INJ 40 MG/0.4 ML DISP.SYRIN SUBCUT SCH (08:28)
[2016-11-27] MEDS: POTASSIUM CHLORIDE 10 MEQ TABLET.SA PO SCH ×2 (08:51→22:12)
[2016-11-27] MEDS ORDERED: AZITHROMYCIN 500 MG in DEXTROSE 5%-WATER 250 ML IV SCH (10:00)
[2016-11-27] MEDS ORDERED: ALBUTEROL SULFATE 0.083% NEB 2.5 MG/3 ML AMPUL NEB PRN (11:28)
--- NOTE | 2016-11-27 11:35 | PDOC PROGRESS REPORT ---
Subjective Progress Note for:: 11/27/16 Subjective:: The patient was seen earlier today on rounds. The patient's output was consistent with 3 liters that was recorded starting at noon yesterday. Patient has diuresed very well and has had almost complete symptom resolution. The patient denies any nausea, vomiting, diarrhea, shortness of breath, dizziness, chest pain, heart palpitations, fevers, or chills. The patient has remained afebrile. Blood pressures have been in a good range. When prompted the patient voices no other concerns at this time. Review of systems: The rest of the review of systems is negative. Physical Exam Vital Signs: Temp Pulse Resp BP Pulse Ox 98.2 F 78 16 128/70 H 98 11/27/16 08:05 11/27/16 08:05 11/27/16 08:05 11/27/16 08:05 11/27/16 08:05 Intake & Output 11/25/16 11/26/16 11/27/16 23:59 23:59 23:59 Intake Total 1830 1000 Output Total 3450 2300 Balance -1620 -1300 Weight 87.2 kg 84.5 kg General appearance: PRESENT: no acute distress, cooperative, well-developed, well-nourished Head exam: PRESENT: atraumatic, normocephalic Eye exam: PRESENT: conjunctiva pink, EOMI, PERRLA. ABSENT: scleral icterus Ear exam: PRESENT: normal external ear exam Mouth exam: PRESENT: moist, tongue midline Neck exam: ABSENT: carotid bruit, JVD, lymphadenopathy, thyromegaly Respiratory exam: PRESENT: Crackles have resolved, symmetrical, unlabored. ABSENT: rales, rhonchi, tachypnea, wheezes Cardiovascular exam: PRESENT: RRR. ABSENT: diastolic murmur, rubs, systolic murmur Pulses: PRESENT: normal dorsalis pedis pul Vascular exam: PRESENT: normal capillary refill GI/Abdominal exam: PRESENT: normal bowel sounds, soft. ABSENT: distended, guarding, mass, organolmegaly, rebound, tenderness Rectal exam: PRESENT: deferred Extremities exam: PRESENT: full ROM. ABSENT: calf tenderness, clubbing, pedal edema Neurological exam: PRESENT: alert, awake, oriented to person, oriented to place , oriented to time, oriented to situation, CN II-XII grossly intact. ABSENT: motor sensory deficit Psychiatric exam: PRESENT: appropriate affect, normal mood. ABSENT: homicidal ideation, suicidal ideation Skin exam: PRESENT: dry, intact, warm. ABSENT: cyanosis, rash Results Laboratory Results: 11/27/16 06:20 11/27/16 06:20 11/27/16 11/27/16 06:20 06:20 WBC 17.5 H RBC 4.44 Hgb 13.7 Hct 40.8 MCV 92 MCH 30.9 MCHC 33.6 RDW 14.2 H Plt Count 200 Seg Neutrophils % 78.1 H Lymphocytes % 13.8 Monocytes % 7.1 Eosinophils % 0.4 Basophils % 0.6 Absolute Neutrophils 13.7 H Absolute Lymphocytes 2.4 Absolute Monocytes 1.2 Absolute Eosinophils 0.1 Absolute Basophils 0.1 Sodium 139.9 Potassium 4.2 Chloride 105 Carbon Dioxide 22 Anion Gap 13 BUN 37 H Creatinine 0.87 Est GFR ( Amer) > 60 Est GFR (Non-Af Amer) > 60 Glucose 153 H Calcium 9.9 Magnesium 1.7 Total Bilirubin 1.3 AST 16 ALT 26 Alkaline Phosphatase 61 Total Protein 7.5 Albumin 4.1 11/26/16 11/26/16 09:59 14:40 Troponin I 0.127 0.106 Impressions: Chest X-Ray 11/26/16 00:00 IMPRESSION: Moderate pulmonary edema pattern. Differential diagnosis includes multifocal pneumonia. Assessment & Plan - Diagnosis (1) COPD exacerbation Is this a current diagnosis for this admission?: YesPlan: BiPAP is been discontinued the patient's blood gas normalize. Patient overall is much improved. (2) Acute on chronic respiratory failure with hypoxia and hypercapnia Is this a current diagnosis for this admission?: YesPlan: Multifocal but most SECONDARY to #3. Will discontinue antibiotic therapy. (3) Acute on chronic diastolic (congestive) heart failure Is this a current diagnosis for this admission?: YesPlan: The patient diuresed bout 4 liters yesterday. Thus far have neted a total of 3 liters. Will continue to diurese with IV Lasix. bitor. The patient did have a troponin bump which most likely secondary to #1. However the patient has not been seen or evaluated by cardiology at any point outpatient. Has any history of heart catheterization or stress test. Review of echo done last month did show diastolic dysfunction and possible RV failure. Appreciate Rola' s input. (4) Abnormal LFTs Is this a current diagnosis for this admission?: YesPlan: Most likely due to volume overload and has therefore improved. (5) Hypokalemia Is this a current diagnosis for this admission?: YesPlan: This was replaced and improved. However will continue to supplement given ongoing diuresis. (6) Diabetes mellitus type 2 in obese Is this a current diagnosis for this admission?: YesPlan: Will continue sliding scale coverage and Januvia. Will defer metformin for now. (7) Dietary indiscretion Is this a current diagnosis for this admission?: Yes (8) Noncompliance Is this a current diagnosis for this admission?: Yes (9) Tobacco abuse Is this a current diagnosis for this admission?: YesPlan: Will continue when necessary nicotine patch. - Time Time Spent with patient: 25-34 minutes Medications reviewed and adjusted accordingly: Yes Anticipated discharge: Home Within: within 24 hours Disposition: The patient is a full code. Pending patient's symptomatology and diagnostic findings will reevaluate in the a.m.
[2016-11-27] MEDS: INSULIN LISPRO 100 UNIT/ML 3 ML VIAL SUBCUT PRN ×2 (12:40→22:13)
--- NOTE | 2016-11-27 18:54 | PDOC PROGRESS REPORT ---
Subjective Progress Note for:: 11/27/16 Subjective:: Patient seems to be doing better with significant improvement. Pt is denying any chest arm or neck discomfort. Patient denying any PND, orthopnea. Patient denied any sustained palpitations, dizziness, syncope, near syncope. Patient denying any fever chills. Patient denying any other significant discomfort. Patient is maintaining sinus rhythm. Review of systems: Rest review of systems negative. Medications: Medications have been reviewed. Physical Exam Vital Signs: Temp Pulse Resp BP Pulse Ox 98.6 F 79 18 139/89 H 95 11/27/16 16:03 11/27/16 16:03 11/27/16 16:03 11/27/16 16:03 11/27/16 16:03 Intake & Output 11/26/16 11/27/16 11/28/16 06:59 06:59 06:59 Intake Total 2830 902 Output Total 5750 Balance -2920 902 Weight 84.5 kg Exam: GENERAL: well-nourished and in no acute distress. Alert and oriented x3 HEAD: Atraumatic, normocephalic. EYES: Pupils equal round and reactive to light, extraocular movements intact, sclera anicteric, conjunctiva are normal. ENT: TMs normal, nares patent, oropharynx clear without exudates. Moist mucous membranes. No oral ulcerations or bleeding gums noted NECK: supple without lymphadenopathy. Trachea is central. No cervical or axillary lymphadenopathy noted. Carotids are 2+, JVD WNL LUNGS: Respiration seems nonlabored, no significant accessory muscle action noted. Breath sounds clear to auscultation bilaterally and equal noted. No wheezes rales or rhonchi noted. No significant dullness noted on percussion. CHEST: Palpation of the chest wall shows no significant chest wall tenderness. No other significant abnormalities noted. 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 ABDOMEN: Soft, no significant tenderness appreciated, normoactive bowel sounds. No guarding, no rebound. No rigidity noted . No masses appreciated. EXTREMITIES: Pedal pulses are 1-2+, no calf tenderness noted. No clubbing or cyanosis.trace to 1+ pedal edema noted NEUROLOGICAL: Focused neurological exam showed no significant neurologic deficit. Normal speech, no focal weakness appreciated. PSYCH: Normal mood, normal affect. Judgment and insight within normal limits. SKIN: No significant ecchymosis, rash, ulcerations or signs of pruritus noted. MUSCULOSKELETAL EXAM: No significant joint swelling noted. Results Laboratory Results: 11/27/16 06:20 11/27/16 06:20 11/27/16 11/27/16 06:20 06:20 WBC 17.5 H RBC 4.44 Hgb 13.7 Hct 40.8 MCV 92 MCH 30.9 MCHC 33.6 RDW 14.2 H Plt Count 200 Seg Neutrophils % 78.1 H Lymphocytes % 13.8 Monocytes % 7.1 Eosinophils % 0.4 Basophils % 0.6 Absolute Neutrophils 13.7 H Absolute Lymphocytes 2.4 Absolute Monocytes 1.2 Absolute Eosinophils 0.1 Absolute Basophils 0.1 Sodium 139.9 Potassium 4.2 Chloride 105 Carbon Dioxide 22 Anion Gap 13 BUN 37 H Creatinine 0.87 Est GFR ( Amer) > 60 Est GFR (Non-Af Amer) > 60 Glucose 153 H Calcium 9.9 Magnesium 1.7 Total Bilirubin 1.3 AST 16 ALT 26 Alkaline Phosphatase 61 Total Protein 7.5 Albumin 4.1 11/26/16 11/26/16 09:59 14:40 Troponin I 0.127 0.106 Impressions: Chest X-Ray 11/26/16 00:00 IMPRESSION: Moderate pulmonary edema pattern. Differential diagnosis includes multifocal pneumonia. Assessment & Plan - Diagnosis (1) Elevated troponin I level Is this a current diagnosis for this admission?: Yes (2) Hypertensive emergency Is this a current diagnosis for this admission?: Yes (3) Acute on chronic diastolic (congestive) heart failure Is this a current diagnosis for this admission?: Yes (4) Acute on chronic respiratory failure with hypoxia and hypercapnia Is this a current diagnosis for this admission?: Yes (5) Diabetes mellitus type 2 in obese Is this a current diagnosis for this admission?: Yes (6) Tobacco abuse Is this a current diagnosis for this admission?: Yes - Notes Notes: Elevated troponin I: Most likely related to severe hypertension and CHF rather than acute coronary syndrome. Patient has been chest pain-free. Patient is expected to be discharged and was actually wanting to be discharged today. Discussed that it may be worthwhile to consider a stress test but she prefers to have it done as an outpatient. Hypertensive emergency: patient had severely elevated blood pressure on presentation. Currently this is under control. Her pressure goal should be 135 /85 or less. Acute on chronic diastolic heart failure: Continue diuretic therapy. Elevation seems actually quite compensated. Acute on chronic respiratory failure with hypoxemia and hypercapnia: This is precipitated by CHF on top of COPD. Patient has been advised to quit smoking. Patient currently on some supplemental oxygen. Diabetes2: This is being managed adequately by hospitalist. Tobacco abuse: Patient has been advised to quit smoking. We'll repeat EKG prior to discharge to make sure there are no evolving changes - Time Time with patient: 15-25 minutes Medications reviewed and adjusted accordingly: Yes
[2016-11-27] MEDS: ATORVASTATIN CALCIUM 20 MG TABLET PO SCH (22:12)
[2016-11-28 05:28] LABS: HEMATOCRIT 40.9 % (36.0-47.0); HEMOGLOBIN 13.9 g/dL (12.0-15.5); HGB HCT DIFFERENCE 0.8; MEAN CORPUSCULAR VOLUME 91 fl (80-97); RED BLOOD COUNT 4.49 10^6/uL (3.72-5.28); RED CELL DISTRIBUTION WIDTH 14.4 % (11.5-14.0); WHITE BLOOD COUNT 11.6 10^3/uL (4.0-10.5)
[2016-11-28 05:57] LABS: ANION GAP 12 (5-19); BLOOD UREA NITROGEN 38 mg/dL (7-20); CALCIUM 9.7 mg/dL (8.4-10.2); CARBON DIOXIDE 25 mmol/L (22-30); CHLORIDE 105 mmol/L (98-107); CREATININE RESULT 0.99 mg/dL (0.52-1.25); GLUCOSE 132 mg/dL (75-110); MAGNESIUM 1.9 mg/dL (1.6-2.3); POTASSIUM 4.2 mmol/L (3.6-5.0); SODIUM 142.3 mmol/L (137-145)
[2016-11-28] MEDS: FUROSEMIDE INJ/PF 40 MG/4 ML SDV IV SCH (06:21)
[2016-11-28] MEDS: LANSOPRAZOLE 30 MG TAB.RAP.DR PO SCH (06:24)
--- NOTE | 2016-11-28 08:36 | EKG REPORT ---
SEVERITY:- ABNORMAL ECG - SINUS RHYTHM LEFT VENTRICULAR HYPERTROPHY : Confirmed by: Martha Canela 28-Nov-2016 08:36:11
[2016-11-28] MEDS: AMLODIPINE BESYLATE 5 MG TABLET PO SCH (09:06)
[2016-11-28] MEDS: GLIMEPIRIDE 4 MG TABLET PO SCH (09:06)
[2016-11-28] MEDS: POTASSIUM CHLORIDE 10 MEQ TABLET.SA PO SCH (09:06)
[2016-11-28] MEDS: METOPROLOL TARTRATE 50 MG TABLET PO SCH (09:07)
[2016-11-28] MEDS: BENAZEPRIL HCL 20 MG TABLET PO SCH (09:07)
[2016-11-28] MEDS: ENOXAPARIN SODIUM INJ 40 MG/0.4 ML DISP.SYRIN SUBCUT SCH (09:07)
[2016-11-28 11:45] VITALS: BP 124/72
--- NOTE | 2016-11-28 13:41 | PDOC DISCHARGE SUMMARY ---
General - Admit/Disc Date/PCP Admission Date/Primary Care Provider: 11/26/16 07:22 JEWELS BENITEZ MD Outpatient consulting auto parts clerk is Dr. Canela Discharge Date: 11/28/16 - Discharge Diagnosis (1) COPD exacerbation Is this a current diagnosis for this admission?: Yes (2) Acute on chronic respiratory failure with hypoxia and hypercapnia Is this a current diagnosis for this admission?: Yes (3) Acute on chronic diastolic (congestive) heart failure Is this a current diagnosis for this admission?: Yes (4) Abnormal LFTs Is this a current diagnosis for this admission?: Yes (5) Hypokalemia Is this a current diagnosis for this admission?: Yes (6) Diabetes mellitus type 2 in obese Is this a current diagnosis for this admission?: Yes (7) Dietary indiscretion Is this a current diagnosis for this admission?: Yes (8) Noncompliance Is this a current diagnosis for this admission?: Yes (9) Tobacco abuse Is this a current diagnosis for this admission?: Yes - Additional Information Resuscitation Status: Full Code Discharge Diet: As Tolerated, Cardiac Discharge Activity: Activity As Tolerated, Weigh Daily Home Medications: Albuterol Sulfate [Ventolin Hfa] 1 puff IH Q4 PRN 11/26/16 Atorvastatin Calcium [Lipitor 20 mg Tablet] 20 mg PO QHS 11/26/16 Benazepril HCl [Lotensin] 20 mg PO DAILY 11/26/16 Glimepiride [Amaryl 4 mg Tablet] 8 mg PO DAILY 11/26/16 Metformin HCl [Glucophage] 1,000 mg PO BID 11/26/16 Metoprolol Tartrate [Lopressor] 50 mg PO Q12 11/26/16 Sitagliptin Phosphate [Januvia] 100 mg PO DAILY 11/26/16 Amlodipine Besylate [Norvasc 5 mg Tablet] 5 mg PO DAILY #30 tablet 11/28/16 Furosemide [Lasix] 40 mg PO DAILY #30 tablet 11/28/16 Potassium Chloride [K-Tab ER] 20 meq PO DAILY #30 tablet.er 11/28/16 History of Present Illness Patient complains of: Chest and shortness of breath History of Present Illness: 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 Patient was on BiPAP, and is somewhat fatigued, and while she is able to provide some information, a significant portion concerning both acute and chronic aspects of her health care is provided by her daughter Alida, who is her surrogate health care decision maker and is present at her side with patient 's approval. Patient described sudden onset of pronounced shortness of breath. Upon emergency room arrival, O2 saturation on CPAP in the 70 percentile range, with blood pressure 240/120, and patient in severe respiratory distress. She has responded nicely to a combination of BiPAP, nitroglycerin drip, and intravenous Lasix. Breathing much more comfortably now. Was having chest tightness and discomfort when the respiratory distress was at its worst, but now this has resolved. She does describe a 3 to four-week history of mild left shoulder pain. Denies abdominal pain. No fever chills, diarrhea or dysuria, nausea vomiting. Lately he has been compliant with her medications, but does admit that she has been eating quite a bit of fried chicken lately. Daughter confirms this. Hospitalized on our service October 06 through the of this year, with discharge diagnoses including COPD exacerbation, congestive heart failure, and hypercapnic respiratory failure. Echocardiogram during that hospital stay revealed ejection fraction of 50-55%, with diastolic dysfunction. Hospital Course Hospital Course: The patient was admitted to [facility]. The patient was diuresed with IV diuretic and continued on home medications including aspirin, beta alexandra, ASHISH inhibitor. Patient's ABG improved significantly. The patient had significant improvement in symptoms diuresis only. The patient's respiratory failure completely resolved. Echocardiogram revealed an ejection fraction of 50-55% with evidence of diastolic dysfunction. The patient received education and was instructed on dietary habits as well as daily weights. The patient was seen and evaluated by cardiology given her elevation in troponin. The patient will follow-up with cardiology in outpatient basis or stress test.. Physical Exam Vital Signs: Temp Pulse Resp BP Pulse Ox 97.5 F 72 18 124/72 100 11/28/16 11:43 11/28/16 11:43 11/28/16 11:43 11/28/16 11:43 11/28/16 11:43 Intake & Output 11/26/16 11/27/1617 23:59 23:59 23:59 Intake Total 1830 1902 028 Output Total 4280 2300 Balance -1620 -398 257 Weight 87.2 kg 84.5 kg 83.3 kg General appearance: PRESENT: no acute distress, cooperative, well-developed, well-nourished Head exam: PRESENT: atraumatic, normocephalic Eye exam: PRESENT: conjunctiva pink, EOMI, PERRLA. ABSENT: scleral icterus Ear exam: PRESENT: normal external ear exam Mouth exam: PRESENT: moist, tongue midline Neck exam: ABSENT: carotid bruit, JVD, lymphadenopathy, thyromegaly Respiratory exam: PRESENT: To auscultation symmetrical, unlabored. ABSENT: rales, rhonchi, tachypnea, wheezes Cardiovascular exam: PRESENT: RRR. ABSENT: diastolic murmur, rubs, systolic murmur Pulses: PRESENT: normal dorsalis pedis pul Vascular exam: PRESENT: normal capillary refill GI/Abdominal exam: PRESENT: normal bowel sounds, soft. ABSENT: distended, guarding, mass, organolmegaly, rebound, tenderness Rectal exam: PRESENT: deferred Extremities exam: PRESENT: full ROM. ABSENT: calf tenderness, clubbing, pedal edema Neurological exam: PRESENT: alert, awake, oriented to person, oriented to place , oriented to time, oriented to situation, CN II-XII grossly intact. ABSENT: motor sensory deficit Psychiatric exam: PRESENT: appropriate affect, normal mood. ABSENT: homicidal ideation, suicidal ideation Skin exam: PRESENT: dry, intact, warm. ABSENT: cyanosis, rash Results Laboratory Results: Labs- Last Values WBC 11.6 10^3/uL (4.0-10.5) H 11/28/16 04:49 RBC 4.49 10^6/uL (3.72-5.28) 11/28/16 04:49 Hgb 13.9 g/dL (12.0-15.5) 11/28/16 04:49 Hct 40.9 % (36.0-47.0) 11/28/16 04:49 MCV 91 fl (80-97) 11/28/16 04:49 MCH 31.0 pg (27.0-33.4) 11/28/16 04:49 MCHC 34.0 g/dL (32.0-36.0) 11/28/16 04:49 RDW 14.4 % (11.5-14.0) H 11/28/16 04:49 Plt Count 209 10^3/uL (150-450) 11/28/16 04:49 Seg Neutrophils % 78.1 % (42-78) H 11/27/16 06:20 Lymphocytes % 13.8 % (13-45) 11/27/16 06:20 Monocytes % 7.1 % (3-13) 11/27/16 06:20 Eosinophils % 0.4 % (0-6) 11/27/16 06:20 Basophils % 0.6 % (0-2) 11/27/16 06:20 Absolute Neutrophils 13.7 10^3/uL (1.7-8.2) H 11/27/16 06:20 Absolute Lymphocytes 2.4 10^3/uL (0.5-4.7) 11/27/16 06:20 Absolute Monocytes 1.2 10^3/uL (0.1-1.4) 11/27/16 06:20 Absolute Eosinophils 0.1 10^3/uL (0.0-0.6) 11/27/16 06:20 Absolute Basophils 0.1 10^3/uL (0.0-0.2) 11/27/16 06:20 PT 12.1 SEC (11.4-15.4) 11/26/16 02:33 INR 0.87 11/26/16 02:33 Carbonic Acid 2.09 mmol/L (1.05-1.35) H 11/26/16 02:33 HCO3/H2CO3 Ratio 12:1 11/26/16 02:33 ABG pH 7.20 (7.35-7.45) L* 11/26/16 02:33 ABG pCO2 69.3 mmHg (35-45) H* 11/26/16 02:33 ABG pO2 81.2 mmHg (80-100) 11/26/16 02:33 ABG HCO3 26.5 mmol/L (20-26) H 11/26/16 02:33 ABG Total CO2 28.7 mmol/L (21-25) H 11/26/16 02:33 ABG O2 Saturation 93.0 % (94-98) L 11/26/16 02:33 ABG Base Excess -3.3 mmol/L 11/26/16 02:33 VBG pH 7.37 (7.30-7.42) 11/26/16 09:59 VBG pCO2 48.4 mmHg (35-63) 11/26/16 09:59 VBG HCO3 27.0 mmol/L (20-32) 11/26/16 09:59 VBG Base Excess 1.1 mmol/L 11/26/16 09:59 FiO2 40% 11/26/16 02:33 Sodium 142.3 mmol/L (137-145) 11/28/16 04:49 Potassium 4.2 mmol/L (3.6-5.0) 11/28/16 04:49 Chloride 105 mmol/L (98-107) 11/28/16 04:49 Carbon Dioxide 25 mmol/L (22-30) 11/28/16 04:49 Anion Gap 12 (5-19) 11/28/16 04:49 BUN 38 mg/dL (7-20) H 11/28/16 04:49 Creatinine 0.99 mg/dL (0.52-1.25) 11/28/16 04:49 Est GFR ( Amer) > 60 (>60) 11/28/16 04:49 Est GFR (Non-Af Amer) 57 (>60) L 11/28/16 04:49 Glucose 132 mg/dL (75-110) H 11/28/16 04:49 POC Glucose 125 mg/dL (70-110) H 11/28/16 06:26 Lactic Acid 1.2 mmol/L (0.7-2.1) 11/26/16 07:00 Calcium 9.7 mg/dL (8.4-10.2) 11/28/16 04:49 Magnesium 1.9 mg/dL (1.6-2.3) 11/28/16 04:49 Total Bilirubin 1.3 mg/dL (0.2-1.3) 11/27/16 06:20 Direct Bilirubin 0.5 mg/dL (0.0-0.4) H 11/27/16 06:20 Indirect Bilirubin Not Reportable 11/27/16 06:20 Neonat Total Bilirubin Not Reportable 11/27/16 06:20 AST 16 U/L (14-36) 11/27/16 06:20 ALT 26 U/L (9-52) 11/27/16 06:20 Alkaline Phosphatase 61 U/L (38-126) 11/27/16 06:20 Troponin I 0.106 ng/mL 11/26/16 14:40 NT-Pro-B Natriuret Pep 1900 pg/mL (5-900) H 11/26/16 02:33 Total Protein 7.5 g/dL (6.3-8.2) 11/27/16 06:20 Albumin 4.1 g/dL (3.5-5.0) 11/27/16 06:20 Urine Color COLORLESS 11/26/16 02:55 Urine Appearance CLEAR 11/26/16 02:55 Urine pH 7.0 (5.0-9.0) 11/26/16 02:55 Ur Specific [place] 1.003 11/26/16 02:55 Urine Protein 100 mg/dL (NEGATIVE) H 11/26/16 02:55 Urine Glucose (UA) >=500 mg/dL (NEGATIVE) H 11/26/16 02:55 Urine Ketones NEGATIVE mg/dL (NEGATIVE) 11/26/16 02:55 Urine Blood SMALL (NEGATIVE) H 11/26/16 02:55 Urine Nitrite NEGATIVE (NEGATIVE) 11/26/16 02:55 Urine Bilirubin NEGATIVE (NEGATIVE) 11/26/16 02:55 Urine Urobilinogen NEGATIVE mg/dL (<2.0) 11/26/16 02:55 Ur Leukocyte Esterase NEGATIVE (NEGATIVE) 11/26/16 02:55 Urine WBC (Auto) 1 /HPF 11/26/16 02:55 Urine RBC (Auto) 1 /HPF 11/26/16 02:55 Urine Mucus (Auto) RARE /LPF 11/26/16 02:55 Urine Ascorbic Acid NEGATIVE (NEGATIVE) 11/26/16 02:55 11/26/16 04:11 Blood Culture - Preliminary Blood NO GROWTH AFTER 48 HOURS 11/26/16 03:14 Blood Culture - Preliminary Blood NO GROWTH AFTER 48 HOURS 11/26/16 02:55 Urine Culture - Final Catheterized Urine NO GROWTH 2 DAYS Impressions: Chest X-Ray 11/26/16 00:00 IMPRESSION: Moderate pulmonary edema pattern. Differential diagnosis includes multifocal pneumonia. Qualifiers PATEINT BEING DISCHARGED WITH ANY OF THE FOLLOWING DIAGNOSIS?: No Plan Discharge Plan: The patient's follow-up primary care provider within one week for hospital follow-up. The patient is a follow with her auto parts clerk Dr. Canela within 2-4 weeks for hospital follow-up. Time Spent: Less than 30 Minutes
--- NOTE | 2016-11-28 20:05 | PDOC PROGRESS REPORT ---
Subjective Progress Note for:: 11/28/16 Subjective:: Patient seems to be doing better with significant improvement. Pt is denying any chest arm or neck discomfort. Patient denying any PND, orthopnea. Patient denied any sustained palpitations, dizziness, syncope, near syncope. Patient denying any fever chills. Patient denying any other significant discomfort. Patient is maintaining sinus rhythm. Patient is being discharged today. She wishes to follow up with me. Review of systems: Rest review of systems negative. Medications: Medications have been reviewed. Physical Exam Vital Signs: Temp Pulse Resp BP Pulse Ox 97.5 F 72 18 124/72 100 11/28/16 11:43 11/28/16 11:43 11/28/16 11:43 11/28/16 11:43 11/28/16 11:43 Intake & Output 11/27/16 11/28/16 11/29/16 06:59 06:59 06:59 Intake Total 2830 1159 Output Total 5750 Balance -2920 1159 Weight 84.5 kg 83.3 kg Exam: GENERAL: well-nourished and in no acute distress. Alert and oriented x3 HEAD: Atraumatic, normocephalic. EYES: Pupils equal round and reactive to light, extraocular movements intact, sclera anicteric, conjunctiva are normal. ENT: TMs normal, nares patent, oropharynx clear without exudates. Moist mucous membranes. No oral ulcerations or bleeding gums noted NECK: supple without lymphadenopathy. Trachea is central. No cervical or axillary lymphadenopathy noted. Carotids are 2+, JVD WNL LUNGS: Respiration seems nonlabored, no significant accessory muscle action noted. Breath sounds clear to auscultation bilaterally and equal noted. No wheezes rales or rhonchi noted. No significant dullness noted on percussion. CHEST: Palpation of the chest wall shows no significant chest wall tenderness. No other significant abnormalities noted. 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 ABDOMEN: Soft, no significant tenderness appreciated, normoactive bowel sounds. No guarding, no rebound. No rigidity noted . No masses appreciated. EXTREMITIES: Pedal pulses are 1-2+, no calf tenderness noted. No clubbing or cyanosis.trace to 1+ pedal edema noted NEUROLOGICAL: Focused neurological exam showed no significant neurologic deficit. Normal speech, no focal weakness appreciated. PSYCH: Normal mood, normal affect. Judgment and insight within normal limits. SKIN: No significant ecchymosis, rash, ulcerations or signs of pruritus noted. MUSCULOSKELETAL EXAM: No significant joint swelling noted. Results Laboratory Results: 11/28/16 04:49 11/28/16 04:49 11/28/16 11/28/16 04:49 04:49 WBC 11.6 H RBC 4.49 Hgb 13.9 Hct 40.9 MCV 91 MCH 31.0 MCHC 34.0 RDW 14.4 H Plt Count 209 Sodium 142.3 Potassium 4.2 Chloride 105 Carbon Dioxide 25 Anion Gap 12 BUN 38 H Creatinine 0.99 Est GFR ( Amer) > 60 Est GFR (Non-Af Amer) 57 L Glucose 132 H Calcium 9.7 Magnesium 1.9 11/26/16 11/26/16 09:59 14:40 Troponin I 0.127 0.106 EKG Comments: Sinus rhythm and is WNL Impressions: Chest X-Ray 11/26/16 00:00 IMPRESSION: Moderate pulmonary edema pattern. Differential diagnosis includes multifocal pneumonia. Assessment & Plan - Diagnosis (1) Elevated troponin I level Is this a current diagnosis for this admission?: Yes (2) Hypertensive emergency Is this a current diagnosis for this admission?: Yes (3) Acute on chronic diastolic (congestive) heart failure Is this a current diagnosis for this admission?: Yes (4) Acute on chronic respiratory failure with hypoxia and hypercapnia Is this a current diagnosis for this admission?: Yes (5) Diabetes mellitus type 2 in obese Is this a current diagnosis for this admission?: Yes (6) Tobacco abuse Is this a current diagnosis for this admission?: Yes - Notes Notes: Elevated troponin I: Most likely related to severe hypertension and CHF rather than acute coronary syndrome. Patient has been chest pain-free. Patient is being discharged today. She prefers to have the stress test done as an outpatient. This will be scheduled. Hypertensive emergency: patient had severely elevated blood pressure on presentation. Currently this is under control. Her pressure goal should be 135 /85 or less. Blood pressure under satisfactory control. Acute on chronic diastolic heart failure: Continue diuretic therapy. CHF now compensated. Patient has been educated in CHF pathway. Acute on chronic respiratory failure with hypoxemia and hypercapnia: This is precipitated by CHF on top of COPD. Patient has been advised to quit smoking. Diabetes2: This is being managed adequately by hospitalist. Patient to follow- up with her primary care. Ata Tobacco abuse: Patient has been advised to quit smoking. Bleed EKG reviewed shows sinus rhythm and is WNL. - Time Time with patient: 15-25 minutes - CODE STATUS was discussed, patient remains full code. Surrogate decision-maker ration son. Multiple medical problems were addressed.More than 50% of the time spent coordinating care, discussing management plans with involved caregivers. Management plans discussed with involved personnels. Medical decision making was of moderate to high complexity , patient's has multiple severe comorbidities. Medications reviewed and adjusted accordingly: Yes
== END 2016-11-28 12:02 | disposition home or self-care (01) | DRG 190 ==
LOC: ER 02:19 → EH 04:55 → UNDOADMIN 04:55 → EH 07:22 → 3S 07:55
PROVIDERS: ADMIT Family Medicine; ATTEND Family Medicine
PROC: 5A09357 Assistance with Respiratory Ventilation, Less than 24 Consecutive Hours, Continuous Positive Airway Pressure (ICD-10-PCS; principal; 2016-11-26)
DX: J44.1 Chronic obstructive pulmonary disease with (acute) exacerbation (principal); J96.22 Acute and chronic respiratory failure with hypercapnia; J96.21 Acute and chronic respiratory failure with hypoxia; I50.33 Acute on chronic diastolic (congestive) heart failure; I16.1 Hypertensive emergency; E87.6 Hypokalemia; I11.0 Hypertensive heart disease with heart failure; E11.9 Type 2 diabetes mellitus without complications; R74.8 Abnormal levels of other serum enzymes; F17.200 Nicotine dependence, unspecified, uncomplicated; E78.5 Hyperlipidemia, unspecified; Z91.19 Patient's noncompliance with other medical treatment and regimen; Z82.49 Family history of ischemic heart disease and other diseases of the circulatory system; Z79.4 Long term (current) use of insulin; Z68.31 Body mass index [BMI] 31.0-31.9, adult
CPT/HCPCS: 36415; 51702; 71010; 80048; 80053; 81001; 82803; 82962; 83605; 83735; 83880; 84484; 85025; 85027; 85610; 87040; 87086; 93005; 93010; 94660; 94799; 96365; 96366; 96368; 96375; 99291; J0456; J0692; J0696; J1650; J1815; J1940; J3480; J3490; J7512

== ENCOUNTER → 2016-12-21 | Outpatient (CLI) | payer MEDICARE, MEDICAID ==
--- NOTE | 2016-12-21 09:44 | RADIOLOGY REPORT (SQ) ---
EXAM DESCRIPTION: SHOULDER LEFT 2 OR MORE VIEWS COMPLETED DATE/TIME: 12/21/2016 8:55 am REASON FOR STUDY: LEFT SHOULDER PAIN (M25.512) M25.512 PAIN IN LEFT SHOULDER COMPARISON: None. NUMBER OF VIEWS: Three views. TECHNIQUE: Internal rotation, external rotation, and Y view images acquired of the left shoulder. LIMITATIONS: None. FINDINGS: MINERALIZATION: Normal. BONES: No acute fracture or dislocation. No worrisome bone lesions. JOINTS: No glenohumeral dislocation. There is bony spurring at the acromioclavicular joint. Small l oose bodies in the subcoracoid recess. VISUALIZED LUNGS AND RIBS: No pneumothorax. No rib fracture. SOFT TISSUES: No radiopaque foreign body. OTHER: No other significant finding. IMPRESSION: No acute fracture or malalignment. Bony spurring at the AC joint. Few tiny loose bodies in the subcoracoid recess. TECHNICAL DOCUMENTATION: JOB ID: [id number] [employer]- All Rights Reserved
== END ==
LOC: RAD 08:39
PROVIDERS: ATTEND Family Medicine
DX: M25.512 Pain in left shoulder (principal)